=== PATIENT | male | born 1940 | race Caucasian/White ===

== ENCOUNTER 2017-03-15 12:14 | Inpatient (IN) ==
[~2017-03-15 12:14] MED LIST: DIAZEPAM 5 MG TABLET PO ONE; HEPARIN/NACL 0.9% 2 UNITS/ML 0 ML IV ONE; LIDOCAINE 1% 20 ML VIAL ONE; MIDAZOLAM 2 MG/2 ML VIAL ONE; diphenhydrAMINE CAP 25 MG CAPSULE PO ONE; fentaNYL 100 MCG/2 ML VIAL ONE
[2017-03-15] MEDS: SODIUM CHLORIDE 0.45% 1,000 ML IV SCH ×2 (12:55→21:38)
[2017-03-15] MEDS ORDERED: diphenhydrAMINE CAP 25 MG CAPSULE ONE (12:57)
[2017-03-15] MEDS ORDERED: DIAZEPAM 5 MG TABLET ONE (12:57)
[2017-03-15] MEDS ORDERED: LIDOCAINE 1% 20 ML VIAL ONE (12:57)
[2017-03-15] MEDS ORDERED: HEPARIN/NACL 0.9% 2 UNITS/ML 1,000 ML IV ONE (12:57)
--- NOTE | 2017-03-15 13:04 | History and Physical Update ---
Sedation H&P Update - History and Physical H&P was reviewed, the patient examined and there: are no changes in the patients condition since last H&P was completed. - Dictation Physical: refer to scanned H&P - Physical Exam Mental Status: alert and oriented Heart: regular rate and rhythm Lung: clear to auscultation Abdomen: within normal limits Vitals: other (hypertensive) - Sedation Plan for Sedation: moderate Patient Consent: Procedure disscussed with patient and patinet has consented., Risks and benefits were discussed with patient,including infection,, bleeding, injury to surrounding structures, seizure, temporary nerve, Patient understands and accepts potential risks/benefits and agrees to, proceed. ASA Class: III Airway Assessment: Class III: Soft palate, base of uvula visible
[2017-03-15] MEDS ORDERED: VERAPAMIL 5 MG/2 ML VIAL ONE (13:11)
[2017-03-15] MEDS ORDERED: MIDAZOLAM 2 MG/2 ML VIAL ONE ×2 (13:11→13:31)
[2017-03-15] MEDS ORDERED: fentaNYL 100 MCG/2 ML VIAL ONE (13:11)
[2017-03-15] MEDS ORDERED: NITROGLYCERIN DRIP 50 MG/250 ML BOTTLE IV ONE (13:11)
[2017-03-15] MEDS ORDERED: diphenhydrAMINE 50 MG/1 ML VIAL ONE (13:44)
[2017-03-15] MEDS ORDERED: hydrALAZINE 20 MG/1 ML VIAL ONE (13:50)
[2017-03-15] MEDS ORDERED: ACETAMINOPHEN 325 MG TABLET PO PRN (14:17)
[2017-03-15] MEDS ORDERED: GLUCAGON 1 MG VIAL IM PRN (14:17)
[2017-03-15] MEDS ORDERED: DEXTROSE 50% 25 GM/50 ML VIAL IV PRN (14:17)
--- NOTE | 2017-03-15 14:31 | Cardiac Catheterization ---
Date of Procedure:: 03/15/17 Pre-op Diagnosis: Unstable angina Post-op diagnosis: other (Severe 2 vessel CADz as described below) Procedure: Procedures: 1. Left heart catheterization resting hemodynamics 2. Selective left and right coronary angiography 3. Selective left subclavian angiography with visualization of the left internal mammary artery 4. Left ventriculography 5. Right femoral iliac angiography 6. Closure right femoral arteriotomy with minx closure device (highly calcified vessel) After consent was taken from the patient. Taken to the catheterization lab for left heart catheterization via the radial approach.Time out was taken and recorded. Lidocaine was infiltrated the skin and subcu tissue overlying the right radial access point. Access was obtained with greater ease however the Terumo Glidewire would not advance was felt that the artery had significant spasm. Multiple attempts and multiple cannulations of the vessel unsuccessful. At this time cardiac catheterization was converted to via the femoral artery. 1% lidocaine was infiltrated in the skin and subcutaneous tissue overlying the right femoral artery. Modified Seldinger technique and an 18-gauge Cook needle was used for access to the right femoral artery. An 0.35 J-wire was advanced through the needle into the central aorta under fluoroscopy. A small skin was made and multiple attempts to pass a 6 Fijian sheath were unsuccessful 6 Fijian dilator also would not advance over the wire. The vessel was highly calcified at the access point in no successful cannulation except for the wire was obtained. At this time the wire was removed along with the needle and manual compression was held until hemostasis was obtained. At this time a more superior approach was attempted and a 6 Fijian placed over the wire with great ease. The sheath was aspirated and flushed. A JL46 was advanced over the wires in the left main coronary artery was selectively engaged. Multiple orthogonal views of the left system were obtained. The catheter was then exchanged over the wire. The sheath was aspirated and flushed. A JR4 catheter was advanced over the wire into the central aorta. The right coronary could not be used to cannulate the highly calcified right coronary artery appear to have a posterior takeoff. At this time a Axel right posterior catheter was used and selectively engaged and orthogonal views of the right coronary artery were obtained. The catheter was then exchanged over the wire, the sheath was aspirated and flushed. At this time an angled pigtail catheter was advanced across the aortic valve into the ventricle. Pressure measurements were obtained and a cine ventriculogram was performed with hand-injection in the AYALA projection. Pullback measurements were performed. The cath was exchanged over the wire and the previously used Axel right posterior was used to selectively engage the left subclavian and a left subclavian angiography was performed with good visualization of the proximal portion of the left internal mammary artery. The whip operator reviewed the films. The sheath was aspirated and flushed and a right femoral and iliac angiography was performed. The access site was amenable for closure and the area was reprepped with ChloraPrep and draped with sterile towels. The Mynx closure device was used in standard technique. There was a small hematoma and distal pulses were good. Total diagnostic fluoroscopy time 8.4 minutes total contrast exposure 105 cc of Omnipaque and total fluoroscopy dose of 798 mGy FINDINGS: LV: 186/17 LVEDP: 31 Ao:183/72 EF: Approximately 55% was suboptimal opacification of the ventricle LM: Large, calcified angiographically normal LAD: Left anterior descending artery is moderately calcified proximally there is a long chronic total occlusion segment of the vessel with left to left, collaterals to the LAD this is at the takeoff of the first diagonal that also was highly diseased at this high-grade stenosis and [employer] of the RCA this is a bifurcation type [employer] with it will be at least a J [employer] 3 due to calcification absence of proximal cap and length LCx: This vessel is rather large but nondominant has moderate to mild disease no high-grade epicardial stenosis RCA: There is a highly calcified vessel with a posterior takeoff has an ostial 80% and a proximal 80% stenosis. The right of vessels calcified but free of any significant epicardial narrowing RFA/MARQUEZ: Is a highly calcified very large vessel with diffuse heavy calcification and stenosis that approaches 60% in the mid body of the femoral artery the iliac arteries calcified has no high-grade stenosis The left subclavian and SNEHAL are free of any significant disease Assessment: 1. Uncontrolled hypertension with elevated end-diastolic pressure possible distal anterior wall motion abnormality not well seen on the ventriculogram 2. Severe two-vessel coronary disease as described above with a very long calcific [employer] of the mid LAD with no well visualized proximal (J CTO3) 3. Calcific peripheral disease as described above 4. Diabetes mellitus type 2 5. Dyslipidemia PLAN: 1. Consultation with CT surgery to assess candidacy for coronary artery bypass grafting 2 or 3 based on the candidacy our target for the diagonal. I discussed with the patient's in great detail. Implants: Mynx closure device Anesthesia: moderate conscious sedation Surgeon / Physician: Guerline Gates Waste Machine Operator: none Estimated blood loss: none Specimens: none sent Condition: stable Disposition: floor - Medications / Follow-up
[2017-03-15] MEDS: INSULIN REGULAR 100 UNIT/ML SUBCUT SCH ×2 (16:39→21:39)
[2017-03-15] MEDS ORDERED: SIMVASTATIN 20 MG TABLET PO SCH (21:00)
[2017-03-15] MEDS ORDERED: PRAMIPEXOLE 0.25 MG TABLET PO SCH (21:00)
[2017-03-15] MEDS ORDERED: SERTRALINE 50 MG TABLET PO SCH (21:00)
[2017-03-15] MEDS: CARVEDILOL 25 MG TABLET PO SCH (21:39)
[2017-03-16 04:49] LABS: Basophils # 0.1 10*3/uL (0.0-0.2); Basophils % 0.8 % (0.0-0.8); Eosinophils # 0.4 10*3/uL (0.0-0.87); Eosinophils % 3.9 % (0.00-10.9); Hemoglobin 14.4 GM/DL (14.0-18.0); Immature Granulocytes % 0.8 %; Immature Granulocytes Absolute 0.07 #; Lymphocytes # 1.6 10*3/uL (1.4-4.0); Lymphocytes % 17.5 % (21.2-54.2); Mean Corpuscular HGB Conc 34.3 GM/DL (32-36); Mean Corpuscular Hemoglobin 29 PG (27-34); Mean Corpuscular Volume 83.5 FL (87-102); Mean Platelet Volume 10.4 FL (9.6-12.0); Monocytes # 0.8 10*3/uL (0.11-0.8); Monocytes % 9.2 % (1.7-12.7); Neutrophils # 6.1 10*3/uL (1.4-7.4); Neutrophils % 67.8 % (38.7-73.9); Platelet Count 187 T/CUMM (130-400); Red Blood Count 5.03 MC/CUMM (3.8-5.5); Red Cell Distribution Width 13.6 % (9.3-17.3)
[2017-03-16 05:17] LABS: Calcium 9.3 MG/DL (8.5-10.1); Osmolality,Calculated 279.5 MOS/KG (273-304); Potassium 4.2 MMOL/L (3.5-5.1)
--- NOTE | 2017-03-16 08:04 | EKG Report ---
Stationary ECG Study [facility] Test Date: 03/16/2017 8:06:51 AM Pat Name: АЛЕКСАНДР LOPEZ Department: Room: 288 Gender: M Commercial Manager: WALDO : 1940 Requested by: Bakari Lara Order Number: [id number] Reading MD: MARCUS GRANT Intervals [place] Rate: 54 P: 78 TX: 186 QRS: 60 QRSD: 95 T: 114 QT: 465 QTc: 452 Interpretive Statements SINUS BRADYCARDIA ANTERIOR MYOCARDIAL INFARCTION, OF INDETERMINATE AGE Electronically Signed On 03-16-17 17:06:54 CDT by MARCUS GRANT [email or web address]
[2017-03-16] MEDS: CARVEDILOL 25 MG TABLET PO SCH (08:48)
[2017-03-16] MEDS: INSULIN REGULAR 100 UNIT/ML SUBCUT SCH ×2 (08:48→12:00)
[2017-03-16] MEDS ORDERED: ASPIRIN EC 81 MG TABLET PO SCH (09:00)
[2017-03-16] MEDS ORDERED: amLODIPine 5 MG TABLET PO SCH (09:00)
[2017-03-16] MEDS ORDERED: ENALAPRIL 10 MG TABLET PO SCH (09:00)
[2017-03-16] MEDS ORDERED: COENZYME Q10 100 MG CAPSULE PO SCH (09:00)
[2017-03-16] MEDS ORDERED: CHOLECALCIFEROL 1,000 UNIT TABLET PO SCH (09:00)
--- NOTE | 2017-03-16 09:18 | Cardiothoracic Progress Note ---
Cardiothoracic Subjective Interval history: Patient is a 76-year-old man who underwent cardiac catheterization yesterday by Dr. Argueta because of symptoms of increasing chest discomfort. Catheterization revealed severe two-vessel coronary disease the patient has been advised to have bypass surgery. I reviewed the films and agree with this recommendation and tentatively plan for next week. Patient is going to go home today presumably and I have asked him to give us a call on Sunday to let us know day he prefers to have surgery. Exam (Progress Note) - Constitutional Vitals: Period Temp Pulse Resp BP Sys/Macias Pulse Ox Last 24 Hr 96.8 F-98.7 F 53-62 16-20 131-195/71-123 92-98 Result/EKG - Labs CBC & BMP: 03/16/17 03:45 03/16/17 03:45 Labs: Laboratory Results - last 24 hr 03/15/17 03/15/17 03/15/17 12:59 16:24 19:11 WBC RBC Hgb Hct MCV MCH MCHC RDW Plt Count MPV Neut % (Auto) Lymph % (Auto) [place] % (Auto) Eos % (Auto) Baso % (Auto) Neut # (Auto) Lymph # (Auto) [place] # (Auto) Eos # (Auto) Baso # (Auto) Immature Gran % Nucleated RBC % Immature Gran # Nucleated RBCs # Sodium Potassium Chloride Carbon Dioxide Anion Gap BUN Creatinine GFR Calculation BUN/Creatinine Ratio Glucose POC Glucose 160 H 116 H 201 H Calculated Osmolality Calcium 03/16/17 03/16/17 03/16/17 03:45 03:45 07:30 WBC 9.0 RBC 5.03 Hgb 14.4 Hct 42.0 MCV 83.5 L MCH 29 MCHC 34.3 RDW 13.6 Plt Count 187 MPV 10.4 Neut % (Auto) 67.8 Lymph % (Auto) 17.5 L [place] % (Auto) 9.2 Eos % (Auto) 3.9 Baso % (Auto) 0.8 Neut # (Auto) 6.1 Lymph # (Auto) 1.6 [place] # (Auto) 0.8 Eos # (Auto) 0.4 Baso # (Auto) 0.1 Immature Gran % 0.8 Nucleated RBC % 0.0 Immature Gran # 0.07 Nucleated RBCs # 0.00 Sodium 139 Potassium 4.2 Chloride 104 Carbon Dioxide 30 Anion Gap 9.2 BUN 14 Creatinine 0.80 GFR Calculation 121 BUN/Creatinine Ratio 17.00 Glucose 131 H POC Glucose 167 H Calculated Osmolality 279.5 Calcium 9.3 Quality Measures - VTE Contraindication to Pharmacological VTE Prophylaxis: High Risk of Bleeding
[2017-03-16 12:24] VITALS: BP 157/72
--- NOTE | 2017-03-16 13:33 | Discharge Summary ---
Hospital Course - Hospital Course Hospital Course: Mr. Slade is a 76-year-old male who was admitted as an outpatient for left heart catheterization due to unstable angina and dyspnea on exertion. Dr. Gates performed left heart cath via right groin on 03/15/2017 which revealed severe two-vessel coronary disease with a very long calcific TRUCK [employer]IVER [employer] of the mid LAD with no well visualized proximal (J CTO3). His ejection fraction was noted to be 55%. CT surgery was consulted to assess candidacy for CABG [address] Guido has seen him and tentatively plans for surgery next week. He is to give Dr. Guido's office a call on Sunday to let them know which day he prefers to have surgery. Radial approach was attempted but was unsuccessful due to spasm. He was observed overnight on the telemetry unit and has done well. His labwork is stable. His blood pressure has been elevated since admission and his enalapril was increased. His blood pressure continues to be elevated. We will further adjust his blood pressure medications prior to discharge. He has been instructed to monitor his blood pressure daily. His right radial cath site looks good. It is open to air without bleeding or hematoma. Radial pulse is 2+. Right groin dressing was removed and cath site is now open to air. There is no bleeding, hematoma, or bruit at site. Femoral pulse is 3+. Peripheral pulses are present and palpable bilaterally. At this time, Mr. Heller has met maximum benefit from hospitalization and will be discharged home in stable condition. - Time spent with patient Time with patient DS: Less than 30 minutes Diagnosis - Discharge Diagnosis (1) Dyspnea on exertion Status: Acute (2) CAD (coronary artery disease) Status: Chronic (3) Overweight Status: Chronic (4) Hypertension Status: Chronic (5) Hypercholesterolemia Status: Chronic (6) Diabetes Status: Chronic Specialty Discharge - Follow Up or Referrals Follow up with: Jonas Guido MD [Physician] - (Call Sunday to set up surgery date. ) Guerline Gates DO [Physician] - (Follow up with Dr. Gates in 2-3 weeks if not in hospital or when discharged following CABG, follow up in 2 weeks from date of discharge. ) Discharge Plan - Discharge Data Disposition: Disch To Home/Self Care Condition at Discharge: Stable Discharge Diet: diabetic diet, heart healthy Activity: no lifting (No lifting over 5 pounds 1 week.) Hygiene: may shower (Do not submerge cath site beneath water for 1 week.) Weight Bearing at Discharge: full weight bearing Driving: not for (No driving for 3 days.) Contact your physician if you experience:: fever over 101, Difficulty voiding, Redness or swelling, Nausea/Vomiting, Shortness of breath, Bleeding, pain uncontrolled by pain medications - Discharge Medications Continue Sertraline [Zoloft] 50 mg PO BEDTIME Simvastatin [Zocor] 20 mg PO BEDTIME Aspirin EC Tab 81 mg PO DAILY Ubidecarenone [Co Q-10] 400 mg PO DAILY metFORMIN [Glucophage] 500 mg PO TID #0 Cholecalciferol (Vitamin D3) [Vitamin D3] 1,000 unit PO DAILY Pramipexole [Mirapex] 0.25 mg PO BEDTIME Carvedilol 25 mg PO BID Changed Enalapril Maleate 10 mg PO BID #60 tablet amLODIPine [Norvasc] 10 mg PO DAILY #30 tablet - Follow Up or Referral - Forms/Instructions Additional Discharge Instructions: May resume taking Metformin on SUNDAY. Exam - Constitutional Vitals: Period Temp Pulse Resp BP Sys/Macias Pulse Ox Last 24 Hr 96.8 F-98.7 F 52-62 16-20 131-195/71-123 92-98 Exam: General: Present: Appears Well, No Apparent Distress. Pleasant and cooperative. Appears comfortable. HEENT: Present: PERRL, Normocephaly, atraumatic. Mucus Membranes Moist. No jaundice noted. Conjunctiva moist and clear, sclerae anicteric Neck: Present: Supple Neck, Midline Trachea, No Masses, No Bruit, No tenderness Cardiac: Present: Regular Rate and Rhythm, systolic Murmur Lungs: Present: Clear to auscultation bilaterally, no wheeze, rhonchi, rales. Neuro: Present: Awake, alert, and oriented x3. Moves all extremities well without hemiparesis or paralysis. Grossly Intact. Absent: Resting Tremor, Essential Tremor Abdomen: Present: Soft, Active Bowel Sounds, No Masses, Non-Tender, nondistended. No abdominal bruit or thrill noted. Skin: Present: Clear. Absent: Rash, No skin breakdown. Back: Normal inspection, no vertebral tenderness. Musculoskeletal: Present: No Fluid Collection, No Pain, Normal Range of Motion Extremities: Present: Normal Gait, No Clubbing, No Cyanosis, Upper Extr. Pulses 2+, Lower Extr. Pulses 2+, No edema. Capillary refill less than 3 seconds. Right groin: No bleeding, hematoma, or bruit. Femoral pulse 3+. Mild ecchymosis surrounding cath site. Peripheral pulses present and palpable bilaterally. Right wrist: No bleeding or hematoma at cath site. Right radial pulse 2+. Discharge Results Procedures and tests throughout hospitalization: Date of Procedure:: 03/15/17 LEFT HEART CATHETERIZATION FINDINGS: LV: 186/17 LVEDP: 31 Ao:183/72 EF: Approximately 55% was suboptimal opacification of the ventricle LM: Large, calcified angiographically normal LAD: Left anterior descending artery is moderately calcified proximally there is a long chronic total occlusion segment of the vessel with left to left, collaterals to the LAD this is at the takeoff of the first diagonal that also was highly diseased at this high-grade stenosis and [employer] of the RCA this is a bifurcation type TRUCK [employer]IVER [employer] with it will be at least a J TRUCK DRIVER [employer] 3 due to calcification absence of proximal cap and length LCx: This vessel is rather large but nondominant has moderate to mild disease no high-grade epicardial stenosis RCA: There is a highly calcified vessel with a posterior takeoff has an ostial 80% and a proximal 80% stenosis. The right of vessels calcified but free of any significant epicardial narrowing RFA/MARQUEZ: Is a highly calcified very large vessel with diffuse heavy calcification and stenosis that approaches 60% in the mid body of the femoral artery the iliac arteries calcified has no high-grade stenosis The left subclavian and SNEHAL are free of any significant disease Assessment: 1. Uncontrolled hypertension with elevated end-diastolic pressure possible distal anterior wall motion abnormality not well seen on the ventriculogram 2. Severe two-vessel coronary disease as described above with a very long calcific TRUCK [employer] of the mid LAD with no well visualized proximal (J CTO3) 3. Calcific peripheral disease as described above 4. Diabetes mellitus type 2 5. Dyslipidemia PLAN: 1. Consultation with CT surgery to assess candidacy for coronary artery bypass grafting 2 or 3 based on the candidacy our target for the diagonal. I discussed with the patient's in great detail. Labs on day of discharge: Labs from last 24 hours 03/16/17 03/16/17 03/16/17 12:13 07:30 03:45 WBC RBC Hgb Hct MCV MCH MCHC RDW Plt Count MPV Neut % (Auto) Lymph % (Auto) [place] % (Auto) Eos % (Auto) Baso % (Auto) Neut # (Auto) Lymph # (Auto) [place] # (Auto) Eos # (Auto) Baso # (Auto) Immature Gran % Nucleated RBC % Immature Gran # Nucleated RBCs # Sodium 139 Potassium 4.2 Chloride 104 Carbon Dioxide 30 Anion Gap 9.2 BUN 14 Creatinine 0.80 GFR Calculation 121 BUN/Creatinine Ratio 17.00 Glucose 131 H POC Glucose 142 H 167 H Calculated Osmolality 279.5 Calcium 9.3 03/16/17 03/15/17 03/15/17 03:45 19:11 16:24 WBC 9.0 RBC 5.03 Hgb 14.4 Hct 42.0 MCV 83.5 L MCH 29 MCHC 34.3 RDW 13.6 Plt Count 187 MPV 10.4 Neut % (Auto) 67.8 Lymph % (Auto) 17.5 L [place] % (Auto) 9.2 Eos % (Auto) 3.9 Baso % (Auto) 0.8 Neut # (Auto) 6.1 Lymph # (Auto) 1.6 [place] # (Auto) 0.8 Eos # (Auto) 0.4 Baso # (Auto) 0.1 Immature Gran % 0.8 Nucleated RBC % 0.0 Immature Gran # 0.07 Nucleated RBCs # 0.00 Sodium Potassium Chloride Carbon Dioxide Anion Gap BUN Creatinine GFR Calculation BUN/Creatinine Ratio Glucose POC Glucose 201 H 116 H Calculated Osmolality Calcium DS: Provider Date of admission: 03/15/17 14:16 Primary care physician: Ian Jackson Attending physician on admission: Guerline Gates DO Consults: 03/15/17 14:20 Consult to Physician [CONS] Routine Comment: Severe 2 vessel CADz in a diabetic male Consulting Provider: Jonas Guido Consult to Specialist Group: Cardiothoracic Surgery Person Notified: PHLILY Date Notified: 03/15/17 Time Notified: 14:55 Discharging clinician: DWAYNE Gracia Expected date of discharge: 03/16/17
--- NOTE | 2017-03-16 14:43 | ECHO Report ---
Tee Heller 03/16/2017 Exam Date: 07:34 Referring Physician: kal Reyna Technologist: MALLIKA REA Age: 76 Ht (in): 71 Wt (lb): 276 MExam Location: [facility] Gender: Echo [id number]: Essential (primary) hypertension, DyIndications:spnea on exertion, Hypercholesterolemia, Unstable angina, Hx: CT, Diabetes BP: 180 / 76 HR: SinusRhythm: GoodTechnical Quality: IMPRESSIONS Normal left ventricular cavity size. Mild left ventricular hypertrophy. Apical hypokinesis- Ef in the 45-50 % range. There is an apical mildly echo dense area that by my interpretation appears to be side lobe artifact. I think that it is much less likely thrombus though a contrast study may be indicated to fully dileneate. Mildly increased right ventricular size. The right atrium is mildly enlarged. The left atrium is mildly enlarged. Morphologically normal mitral valve. Mild mitral valve regurgitation. Morphologically normal aortic valve without significant sclerosis or stenosis. There is no aortic regurgitation. Morphologically normal tricuspid valve. Trace to mild tricuspid valve regurgitation. Morphologically normal pulmonic valve without significant stenosis. There is no pulmonic regurgitation. Normal pericardium without effusion. Normal ascending aorta dimension. MEASUREMENTS (Male / Female) Normal Values 2D ECHO LV Diastolic Diameter PLAX 5.4 cm 4.2 - 5.9 / 3.9 - 5.3 cm LV Systolic Diameter PLAX 2.9 cm LV Fractional Shortening PLAX 45.6 % IVS Diastolic Thickness 1.3 cm 0.6 - 1.0 / 0.6 - 0.9 cm LVPW Diastolic Thickness 1.1 cm 0.6 - 1.0 / 0.6 - 0.9 cm RV Internal Dim ED PLAX 4.0 cm Aortic Root Diameter 3.2 cm LA Systolic Diameter LX 4.7 cm 3.0 - 4.0 / 2.7 - 3.8 cm DOPPLER TR Peak Velocity 307.0 cm/s TR Peak Gradient 37.7 mmHg FINDINGS Left Ventricle Normal left ventricular cavity size. Mild left ventricular hypertrophy. Apical hypokinesis- Ef in the 45-50 % range. There is an apical mildly echo dense area that by my interpretation appears to be side lobe artifact. I think that it is much less likely thrombus though a contrast study may be indicated to fully dileneate. Right Ventricle Mildly increased right ventricular size. Right Atrium The right atrium is mildly enlarged. Left Atrium The left atrium is mildly enlarged. Mitral Valve Morphologically normal mitral valve. Mild mitral valve regurgitation. Aortic Valve Morphologically normal aortic valve without significant sclerosis or stenosis. There is no aortic regurgitation. Tricuspid Valve Morphologically normal tricuspid valve. Trace to mild tricuspid valve regurgitation. Pulmonic Valve Morphologically normal pulmonic valve without significant stenosis. There is no pulmonic regurgitation. Pericardium Normal pericardium without effusion. Aorta Normal ascending aorta dimension. Román Richardson MD (Electronically Signed) 16 March 2017 Final Date: 14:41
== END 2017-03-16 15:30 | disposition home or self-care (01) | DRG 287 ==
LOC: N.CL 12:14 → N.TELEN 14:16
PROVIDERS: ADMIT Internal Medicine Cardiovascular Disease; ATTEND Internal Medicine Cardiovascular Disease

== ENCOUNTER 2017-03-22 09:36 | Inpatient (IN) ==
--- NOTE | 2017-03-20 09:54 | Cardiothoracic History & Phys ---
History of Present Illness Chief complaint: Chest pain History of present illness: Mr. Heller is a 76 year old male who presented to his outside physician with symptoms of increasing substernal chest discomfort. Patient was referred to Dr. Shah for further evaluation which included cardiac catheterization and this demonstrated critical coronary disease. Patient was advised to have bypass surgery and is to be admitted on , 03/22/2017 for surgery on 03/23/2017. Past medical history his past medical history is significant for history of hyperlipidemia and previous myocardial infarction. He also has type 2 diabetes and hypertension. Past surgical history is significant for history of prostate surgery and tonsillectomy. Is also had a laminectomy and previous knee surgery and has had a lobectomy of the lung for uncertain pathology. Family history is noncontributory social history is significant and the patient was a former smoker but did quit about 24 years ago. He is an occasional drinker. Review of systems is noncontributory. Physical examination patient is a well-developed well-nourished white male in no acute distress. Examination of head eyes ears nose and throat show the pupils are equal react to light and extraocular motions are intact. Oropharynx is benign. Examination of the neck shows no masses and there is no thyromegaly. Examination of the chest is clear to percussion and auscultation. Examination of heart shows regular sinus rhythm and there are no murmurs. Examination the abdomen is soft nontender and there are no masses or organomegaly which are appreciated. Examination extremities shows no cyanosis or edema. Neurological examination is grossly intact. Assessment: Coronary artery disease. Plan: Coronary bypass surgery 03/23/2017. Home Medications Medication Instructions Recorded Confirmed Type Aspirin EC Tab 81 mg PO DAILY 03/12/17 03/15/17 History Cholecalciferol (Vitamin D3) 1,000 unit PO DAILY 03/12/17 03/15/17 History [Vitamin D3] Sertraline [Zoloft] 50 mg PO BEDTIME 03/12/17 03/15/17 History Simvastatin [Zocor] 20 mg PO BEDTIME 03/12/17 03/15/17 History Carvedilol 25 mg PO BID 03/15/17 03/15/17 History Pramipexole [Mirapex] 0.25 mg PO BEDTIME 03/15/17 03/15/17 History Ubidecarenone [Co Q-10] 400 mg PO DAILY 03/15/17 03/15/17 History Enalapril Maleate 10 mg PO BID #60 tablet 03/16/17 Rx amLODIPine [Norvasc] 10 mg PO DAILY #30 tablet 03/16/17 Rx metFORMIN [Glucophage] 500 mg PO TID #0 03/16/17 03/15/17 Rx Allergies Allergy/AdvReac Type Severity Reaction Status Date / Time Procaine [From Novocain] AdvReac Severe Fainting Verified 03/15/17 12:33 Medical,Surgical,& Family Hx - Medical History Cardio: History of: CAD No history of: Hypertension, [place] Neurology: No history of: Seizures Endocrine: History of: Diabetes Mellitus (NIDDM) - Surgical History Thoracic Surgeries: Surgical HX of;: Lobectomy (left upper lobe) Orthopedic Surgeries: Surgical HX of;: Total Knee Replacement - Social History Smoking Status: Former smoker Quality Measures - VTE Contraindication to Pharmacological VTE Prophylaxis: High Risk of Bleeding
[~2017-03-22 09:36] MED LIST changes: +DEXTROSE 50% 25 GM/50 ML VIAL IV PRN; -DIAZEPAM 5 MG TABLET PO ONE; +GLUCAGON 1 MG VIAL IM PRN; -HEPARIN/NACL 0.9% 2 UNITS/ML 0 ML IV ONE; -LIDOCAINE 1% 20 ML VIAL ONE; -MIDAZOLAM 2 MG/2 ML VIAL ONE; +SODIUM CHLORIDE 0.9% 1,000 ML IV SCH; -diphenhydrAMINE CAP 25 MG CAPSULE PO ONE; -fentaNYL 100 MCG/2 ML VIAL ONE
[2017-03-22 11:10] LABS: ABG Base Excess 0.5 MMOL/L (-2.5-2.5); ABG HCO3 24.8 MMOL/L (20-26); ABG Oxygen Saturation 96.7 % (95-100); ABG PH 7.421 (7.35-7.45); ABG PO2 84.7 MM HG (80-95); ABG TCO2 21.3 MMOL/L (23-27); Allen Test Positive
[2017-03-22 11:15] LABS: Basophils # 0.1 10*3/uL (0.0-0.2); Basophils % 0.8 % (0.0-0.8); Eosinophils # 0.4 10*3/uL (0.0-0.87); Eosinophils % 4.6 % (0.00-10.9); Hematocrit 40.2 VOL% (42.0-52.0); Hemoglobin 13.9 GM/DL (14.0-18.0); Immature Granulocytes Absolute 0.08 #; Lymphocytes # 1.2 10*3/uL (1.4-4.0); Lymphocytes % 14.8 % (21.2-54.2); Mean Corpuscular HGB Conc 34.6 GM/DL (32-36); Mean Corpuscular Hemoglobin 29 PG (27-34); Mean Corpuscular Volume 83.4 FL (87-102); Monocytes # 0.6 10*3/uL (0.11-0.8); Neutrophils # 5.7 10*3/uL (1.4-7.4); Neutrophils % 71.8 % (38.7-73.9); Platelet Count 212 T/CUMM (130-400); Red Blood Count 4.82 MC/CUMM (3.8-5.5); Red Cell Distribution Width 13.4 % (9.3-17.3)
[2017-03-22 11:55] LABS: Albumin 3.8 G/DL (3.4-5.0); Bilirubin,Total 1.1 MG/DL (0.2-1.0); Calcium 9.4 MG/DL (8.5-10.1); Osmolality,Calculated 286.5 MOS/KG (273-304); Potassium 4.1 MMOL/L (3.5-5.1); Total Protein 7.3 G/DL (6.4-8.3)
[2017-03-22] MEDS: amLODIPine 10 MG TABLET PO SCH ×3 (12:21→16:21)
[2017-03-22] MEDS: ASPIRIN EC 81 MG TABLET PO SCH ×3 (12:21→15:23)
[2017-03-22] MEDS: CLORAZEPATE 3.75 MG TABLET PO SCH ×2 (15:28→22:00)
[2017-03-22] MEDS: cloNIDine 0.1 MG TABLET PO SCH ×2 (15:28→22:00)
[2017-03-22] MEDS: CHLORHEXIDINE 4% SOLN 118 ML BOTTLE TOP SCH ×2 (15:30→22:06)
--- NOTE | 2017-03-22 16:39 | XRay Report ---
2 view chest. Indication: Coronary artery disease. Comparison: March 13, 2017. The heart is normal in size. The pulmonary vasculature is normal. There is elevation of the left hemidiaphragm with parenchymal and pleural scarring at the left costophrenic angle. Interstitial fibrotic changes seen at the lateral aspect of the right lung base. No pneumothorax. No pleural effusion. Degenerative changes of the spinal column and shoulders. Surgical clips are present in the left hilum. Impression: Stable pleural and parenchymal abnormality. PROCEDURE INTERPRETED AT [facility] DEPARTMENT OF RADIOLOGY Final Report Signed by: Dr. Yanci Corey
[2017-03-22] MEDS ORDERED: SIMVASTATIN 20 MG TABLET PO SCH (21:00)
[2017-03-22] MEDS ORDERED: PRAMIPEXOLE 0.25 MG TABLET PO SCH (21:00)
[2017-03-22] MEDS ORDERED: SERTRALINE 50 MG TABLET PO SCH (21:00)
[2017-03-22] MEDS: CARVEDILOL 25 MG TABLET PO SCH (22:00)
[2017-03-22] MEDS: ENALAPRIL 10 MG TABLET PO SCH (22:11)
[2017-03-22] MEDS: CHLORHEXIDINE 0.12% ORAL RINSE 60 ML BOTTLE SWISH/SPIT SCH (22:12)
[2017-03-23] MEDS: cloNIDine 0.1 MG TABLET PO SCH ×3 (02:50→19:21)
[2017-03-23] MEDS: CLORAZEPATE 3.75 MG TABLET PO SCH ×2 (04:27→19:22)
[2017-03-23] MEDS ORDERED: CEFUROXIME INJ 1,500 MG in SODIUM CHLORIDE 0.9% 100 ML IV ONE (04:30)
[2017-03-23] MEDS ORDERED: PAPAVERINE 60 MG/2 ML VIAL ONE (04:38)
[2017-03-23] MEDS ORDERED: VANCOMYCIN 1,000 MG VIAL ONE (04:38)
[2017-03-23] MEDS ORDERED: FAMOTIDINE 20 MG TABLET PO ONE (05:50)
[2017-03-23] MEDS ORDERED: DIAZEPAM 5 MG TABLET PO ONE (05:52)
[2017-03-23] MEDS: CARVEDILOL 25 MG TABLET PO SCH ×2 (06:02→19:21)
[2017-03-23] MEDS ORDERED: NITROPRUSSIDE 50 MG/2 ML VIAL ONE (07:28)
[2017-03-23] MEDS ORDERED: CALCIUM CHLORIDE 1,000 MG/10 ML SYRINGE IV ONE (07:28)
[2017-03-23] MEDS ORDERED: POTASSIUM CHLORIDE RIDER 100 ML IV ONE (07:28)
[2017-03-23] MEDS ORDERED: PHENYLEPHRINE DRIP 40 MG/250 ML PREMIX IV ONE (07:28)
[2017-03-23 07:35] LABS: ABG Base Excess -2.5 MMOL/L (-2.5-2.5); ABG HCO3 24.8 MMOL/L (20-26); ABG Oxygen Saturation 99.3 % (95-100); ABG PCO2 52.9 MM HG (35-48); ABG PH 7.288 (7.35-7.45); ABG PO2 411.7 MM HG (80-95); ABG TCO2 26.4 MMOL/L (23-27); Glucose Heart Surgery 165 MG/DL (74-106); Hemoglobin Heart Surgery 13.3 G/DL (14.0-18.0); Ionized Calcium Arterial 1.18 MMOL/L (1.21-1.46); PCO2 Patient Temp Arterial 52.9 MMHG; PH Patient Temp Arterial 7.288; PO2 Patient Temp Arterial 411.7 MM HG; Patient Temperature 37 CELCIUS; Potassium Heart/CVR 3.9 MMOL/L (3.5-5.1); Sodium Heart/CVR 137 MMOL/L (135-145)
[2017-03-23] MEDS ORDERED: ALBUMIN 5% 12.5 GM/250 ML VIAL IV ONE (07:35)
[2017-03-23] MEDS ORDERED: SODIUM BICARBONATE 50 MEQ/50 ML SYRINGE IV ONE ×2 (07:35→10:09)
[2017-03-23 07:50] LABS: Apearance,Urine CLEAR (Clear); Bacteria,Urine Occasional /HPF (Few); Bilirubin,Urine Negative (Negative); Blood, Urine Negative (Negative); Glucose,Urine (UA) Negative (Negative); Ketones,Urine Negative (Negative); Mucus,Urine Occasional /LPF (Occasional); Nitrite,Urine Negative (Negative); Protein,Urine 100 MG/DL; RBC,Urine 1 /HPF (0-4); Squamous Epithelial Cell,Urine Occasional /HPF (0-10); Urine Color Yellow (Yellow); Urine Specific Gravity 1.018 (1.001-1.035); Urine Urobilinogen < 2.0 EU/DL (0.2-1.0); WBC,Urine 2 /HPF (0-6)
[2017-03-23 08:41] LABS: Hematocrit Heart Surgery 26.9 PERCENT (42-52); Hemoglobin Heart Surgery 8.7 G/DL (14.0-18.0); PCO2 Patient Temp Venous 36.8 MM HG; PH Patient Temp Venous 7.43; PO2 Patient Temp Venous 35.5 MM HG; Potassium Heart/CVR 5.2 MMOL/L (3.5-5.1); VBG Base Excess 0.4 MEQ/L (0-4); VBG HCO3 24.4 MEQ/L (24-28); VBG Oxygen Saturation 75.5 %; VBG PCO2 40.5 MMHG (41-51); VBG PH 7.401; VBG PO2 40.8 MMHG (17-40)
[2017-03-23] MEDS ORDERED: INSULIN REGULAR 100 UNIT/ML ONE (08:51)
[2017-03-23] MEDS ORDERED: CHOLECALCIFEROL 1,000 UNIT TABLET PO SCH (09:00)
[2017-03-23] MEDS ORDERED: COENZYME Q10 100 MG CAPSULE PO SCH (09:00)
[2017-03-23] MEDS ORDERED: INSULIN REGULAR DRIP 100 ML IV ONE (09:30)
[2017-03-23 09:34] LABS: ABG Base Excess -1.4 MMOL/L (-2.5-2.5); ABG HCO3 22.3 MMOL/L (20-26); ABG Oxygen Saturation 98.8 % (95-100); ABG PCO2 33.9 MM HG (35-48); ABG PH 7.436 (7.35-7.45); ABG TCO2 23.3 MMOL/L (23-27); Glucose Heart Surgery 213 MG/DL (74-106); Hemoglobin Heart Surgery 11.2 G/DL (14.0-18.0); Ionized Calcium Arterial 1.21 MMOL/L (1.21-1.46); PCO2 Patient Temp Arterial 33.9 MMHG; PH Patient Temp Arterial 7.436; Patient Temperature 37 CELCIUS; Potassium Heart/CVR 4.7 MMOL/L (3.5-5.1); Sodium Heart/CVR 131 MMOL/L (135-145)
[2017-03-23] MEDS ORDERED: DEXTROSE 5% KCL 20 MEQ 20 MEQ/1,000 ML BAG IV ONE (10:09)
[2017-03-23] MEDS ORDERED: PROTAMINE SULFATE 250 MG/25 ML VIAL IV ONE (10:09)
[2017-03-23] MEDS ORDERED: ALBUMIN 25% 25 GM/100 ML VIAL IV ONE (10:09)
[2017-03-23] MEDS ORDERED: FUROSEMIDE 20 MG/2 ML VIAL ONE (10:10)
[2017-03-23] MEDS ORDERED: methylPREDNISolone SOD SUC 1,000 MG/8 ML VIAL ONE (10:10)
[2017-03-23] MEDS ORDERED: HEPARIN 10,000 UNIT/10 ML VIAL ONE (10:10)
[2017-03-23] MEDS ORDERED: PROTAMINE SULFATE 50 MG/5 ML VIAL IV ONE (10:10)
[2017-03-23] MEDS ORDERED: MAGNESIUM SULFATE 1 GM/2 ML VIAL ONE (10:10)
[2017-03-23] MEDS ORDERED: MANNITOL 12.5 GM/50 ML VIAL IV ONE (10:10)
[2017-03-23] MEDS ORDERED: SEVOFLURANE 1 UNIT/15 MINUTE INH ONE (10:12)
[2017-03-23] MEDS ORDERED: SUFentanil 250 MCG/5 ML AMP ONE ×2 (10:12)
[2017-03-23] MEDS ORDERED: HEPARIN/NACL 0.9% 2 UNITS/ML 500 ML IV ONE (10:12)
[2017-03-23] MEDS ORDERED: SODIUM CHLORIDE 0.9% 1,000 ML IV ONE (10:13)
[2017-03-23] MEDS ORDERED: SODIUM CHLORIDE 0.9% 100 ML IV ONE (10:13)
[2017-03-23] MEDS ORDERED: SODIUM CHLORIDE 0.9% 250 ML IV ONE (10:13)
[2017-03-23] MEDS ORDERED: LACTATED RINGERS 1,000 ML IV ONE (10:13)
[2017-03-23] MEDS ORDERED: MIDAZOLAM 10 MG/2 ML VIAL ONE ×2 (10:13)
[2017-03-23] MEDS ORDERED: ePHEDrine 50 MG/ML AMP ONE (10:16)
[2017-03-23] MEDS ORDERED: VECURONIUM 10 MG VIAL IV PRN ×2 (10:52)
[2017-03-23] MEDS ORDERED: CALCIUM CHLORIDE 1,000 MG/10 ML SYRINGE IV PRN (10:52)
[2017-03-23] MEDS ORDERED: DEXTROSE 50% 25 GM/50 ML VIAL IV PRN ×2 (10:52)
[2017-03-23] MEDS ORDERED: ACETAMINOPHEN 650 MG SUPP RECTAL PRN (10:52)
[2017-03-23] MEDS ORDERED: MORPHINE 2 MG/1 ML SYRINGE IV PRN (10:52)
[2017-03-23] MEDS ORDERED: PHENYLEPHRINE DRIP 40 MG/250 ML PREMIX IV PRN (10:52)
[2017-03-23] MEDS ORDERED: INSULIN REGULAR 100 UNIT/ML IV ONE (10:52)
[2017-03-23] MEDS ORDERED: MIDAZOLAM 10 MG/2 ML VIAL IV PRN (10:52)
[2017-03-23] MEDS ORDERED: LACTATED RINGERS 250 ML IV PRN (10:52)
[2017-03-23] MEDS ORDERED: MORPHINE 10 MG/1 ML VIAL IV PRN (10:52)
[2017-03-23] MEDS ORDERED: MAGNESIUM SULF RIDER 4 GM in PREMIX 1 EACH IV PRN (10:52)
[2017-03-23] MEDS ORDERED: ONDANSETRON 4 MG/2 ML VIAL IV PRN (10:52)
[2017-03-23] MEDS ORDERED: NITROPRUSSIDE 100 MG in DEXTROSE 5% 250 ML IV PRN (10:52)
[2017-03-23] MEDS ORDERED: MIDAZOLAM 2 MG/2 ML VIAL IV PRN (10:52)
[2017-03-23] MEDS ORDERED: MAGNESIUM SULF RIDER 2 GM in PREMIX 1 EACH IV PRN (10:52)
[2017-03-23] MEDS ORDERED: POTASSIUM CHLORIDE RIDER 10 MEQ in PREMIX 1 EACH IV PRN (10:52)
[2017-03-23 10:55] LABS: ABG Base Excess -0.4 MMOL/L (-2.5-2.5); ABG HCO3 24.1 MMOL/L (20-26); ABG Oxygen Saturation 98.1 % (95-100); ABG PCO2 41.5 MM HG (35-48); ABG PH 7.383 (7.35-7.45); Glucose Heart Surgery 188 MG/DL (74-106); Hematocrit Heart Surgery 35.5 PERCENT (42-52); Hemoglobin Heart Surgery 11.5 G/DL (14.0-18.0)
[2017-03-23 10:56] LABS: Basophils % 0.4 % (0.0-0.8); Eosinophils # 0.1 10*3/uL (0.0-0.87); Eosinophils % 1.5 % (0.00-10.9); Hematocrit 33.6 VOL% (42.0-52.0); Immature Granulocytes % 1.3 %; Immature Granulocytes Absolute 0.09 #; Lymphocytes # 0.5 10*3/uL (1.4-4.0); Lymphocytes % 8.1 % (21.2-54.2); Mean Corpuscular HGB Conc 34.5 GM/DL (32-36); Mean Corpuscular Hemoglobin 29 PG (27-34); Mean Corpuscular Volume 83.6 FL (87-102); Monocytes # 0.3 10*3/uL (0.11-0.8); Monocytes % 4.6 % (1.7-12.7); Neutrophils # 5.6 10*3/uL (1.4-7.4); Neutrophils % 84.1 % (38.7-73.9); Red Blood Count 4.02 MC/CUMM (3.8-5.5); Red Cell Distribution Width 13.4 % (9.3-17.3); White Blood Count 6.7 T/CUMM (4-12)
[2017-03-23 11:03] LABS: INR 1.2; PT Patient Result 12.7 SECS; Partial Thromboplastin Time 30.1 SECS (0-40)
[2017-03-23 11:04] LABS: Hemoglobin 11.6 GM/DL (14.0-18.0); Platelet Count 152 T/CUMM (130-400)
[2017-03-23 11:20] LABS: Albumin 3.2 G/DL (3.4-5.0); Bilirubin,Total 1.2 MG/DL (0.2-1.0); Calcium 8.7 MG/DL (8.5-10.1); Osmolality,Calculated 280.7 MOS/KG (273-304); Potassium 4.2 MMOL/L (3.5-5.1); Total Protein 5.8 G/DL (6.4-8.3)
[2017-03-23] MEDS: SODIUM CHLORIDE 0.45% 1,000 ML IV SCH ×2 (11:25→11:26)
[2017-03-23] MEDS: INSULIN REGULAR DRIP 100 ML IV SCH (11:27)
[2017-03-23] MEDS: POTASSIUM CHLORIDE RIDER 20 MEQ in PREMIX 1 EACH IV PRN ×3 (11:29→16:51)
[2017-03-23 11:31] LABS: CKMB % 4.6 %
[2017-03-23 11:35] LABS: Troponin I Only 0.675 NG/ML (0.00-0.045)
[2017-03-23] MEDS ORDERED: MINERAL OIL/PETROLATUM OPH OINT 3.5 GM TUBE ONE (11:36)
[2017-03-23] MEDS ORDERED: VECURONIUM 10 MG VIAL IV ONE (11:36)
[2017-03-23] MEDS: CHLORHEXIDINE 4% SOLN 118 ML BOTTLE TOP SCH (11:37)
[2017-03-23] MEDS: KETOROLAC 30 MG/1 ML VIAL IV SCH ×3 (11:41→23:23)
[2017-03-23] MEDS: LACTATED RINGERS 1,000 ML IV PRN ×3 (12:43→21:52)
[2017-03-23 13:52] LABS: ABG Base Excess -0.1 MMOL/L (-2.5-2.5); ABG HCO3 24.4 MMOL/L (20-26); ABG Oxygen Saturation 97.3 % (95-100); ABG PCO2 40.9 MM HG (35-48); ABG PH 7.392 (7.35-7.45); ABG PO2 93.3 MM HG (80-95); ABG TCO2 21.9 MMOL/L (23-27); Glucose Heart Surgery 146 MG/DL (74-106); Hematocrit Heart Surgery 38.2 PERCENT (42-52); Hemoglobin Heart Surgery 12.4 G/DL (14.0-18.0); Potassium Heart/CVR 3.7 MMOL/L (3.5-5.1)
--- NOTE | 2017-03-23 14:15 | XRay Report ---
XR chest 1V portable Indication: Catheter placement Comparison: 22 March 2017 Findings: The heart and mediastinum are stable in size and configuration post cardiac surgery changes. The lines and tubes appear in good position. The pulmonary vascularity is slightly increased compared to previous. No lung infiltrates, effusions, pneumothorax or other abnormality is demonstrated. Impression: Interval cardiac surgery. Slight increased pulmonary vascularity may indicate mild cardiac decompensation. PROCEDURE INTERPRETED AT [facility] DEPARTMENT OF RADIOLOGY Final Report Signed by: Dr. Maxwell Uribe
--- NOTE | 2017-03-23 14:32 | Anesthesia Post-Op ---
Anesthesia Post OP - Post Ansesthetic Evaluation Patient seen in post op: Yes Resp: within normal limits (remains sedate) CV: within normal limits Mental: within normal limits (remains sedate) Temp: within normal limits [id number]: within normal limits Nausea and Vomiting: within normal limits Pain: within normal limits
[2017-03-23] MEDS: INSULIN REGULAR 100 UNIT/ML IV PRN (16:08)
[2017-03-23 16:45] LABS: ABG Base Excess -0.8 MMOL/L (-2.5-2.5); ABG HCO3 23.7 MMOL/L (20-26); ABG Oxygen Saturation 97.3 % (95-100); ABG PCO2 42.2 MM HG (35-48); ABG PH 7.372 (7.35-7.45); ABG TCO2 21.7 MMOL/L (23-27); Glucose Heart Surgery 162 MG/DL (74-106); Hematocrit Heart Surgery 37.9 PERCENT (42-52); Hemoglobin Heart Surgery 12.3 G/DL (14.0-18.0); Potassium Heart/CVR 4.2 MMOL/L (3.5-5.1)
[2017-03-23] MEDS: CEFUROXIME INJ 1,500 MG in SODIUM CHLORIDE 0.9% 100 ML IV SCH (18:12)
[2017-03-23 18:52] LABS: ABG Base Excess -1.3 MMOL/L (-2.5-2.5); ABG HCO3 23.3 MMOL/L (20-26); ABG Oxygen Saturation 97.8 % (95-100); ABG PCO2 40.3 MM HG (35-48); ABG PH 7.378 (7.35-7.45); ABG PO2 98.9 MM HG (80-95); Glucose Heart Surgery 131 MG/DL (74-106); Hemoglobin Heart Surgery 12.3 G/DL (14.0-18.0); Potassium Heart/CVR 4.4 MMOL/L (3.5-5.1)
[2017-03-23] MEDS: ASPIRIN EC 81 MG TABLET PO SCH (19:21)
[2017-03-23] MEDS: ENALAPRIL 10 MG TABLET PO SCH (19:22)
[2017-03-23] MEDS: CHLORHEXIDINE 0.12% ORAL RINSE 60 ML BOTTLE SWISH/SPIT SCH ×2 (19:22→21:12)
[2017-03-23] MEDS: amLODIPine 10 MG TABLET PO SCH (19:22)
[2017-03-23] MEDS: ALBUMIN 5% 12.5 GM in PREMIX 1 EACH IV PRN ×2 (19:43→20:29)
[2017-03-23 21:36] LABS: CKMB % 3.8 %
[2017-03-23 21:40] LABS: Troponin I Only 1.66 NG/ML (0.00-0.045)
[2017-03-23] MEDS ORDERED: FUROSEMIDE 40 MG/4 ML VIAL ONE (22:31)
[2017-03-23] MEDS ORDERED: FUROSEMIDE 40 MG/4 ML VIAL IV PRN (22:35)
[2017-03-24] MEDS: INSULIN REGULAR 100 UNIT/ML IV PRN (00:22)
[2017-03-24 01:52] LABS: ABG Base Excess -1.3 MMOL/L (-2.5-2.5); ABG HCO3 22.4 MMOL/L (20-26); ABG Oxygen Saturation 98.5 % (95-100); ABG PCO2 34.3 MM HG (35-48); ABG PH 7.433 (7.35-7.45); ABG PO2 151.4 MM HG (80-95); ABG TCO2 23.5 MMOL/L (23-27); Glucose Heart Surgery 132 MG/DL (74-106); Hemoglobin Heart Surgery 12.1 G/DL (14.0-18.0); Potassium Heart/CVR 3.7 MMOL/L (3.5-5.1)
[2017-03-24] MEDS: POTASSIUM CHLORIDE RIDER 20 MEQ in PREMIX 1 EACH IV PRN ×3 (02:23→07:04)
[2017-03-24 03:29] LABS: ABG HCO3 23.6 MMOL/L (20-26); ABG Oxygen Saturation 98.2 % (95-100); ABG PCO2 42.5 MM HG (35-48); ABG PH 7.367 (7.35-7.45); ABG TCO2 21.8 MMOL/L (23-27); Glucose Heart Surgery 146 MG/DL (74-106); Hematocrit Heart Surgery 36.1 PERCENT (42-52); Hemoglobin Heart Surgery 11.7 G/DL (14.0-18.0)
[2017-03-24 03:32] LABS: Basophils % 0.1 % (0.0-0.8); Hematocrit 33.6 VOL% (42.0-52.0); Hemoglobin 11.7 GM/DL (14.0-18.0); Immature Granulocytes % 0.5 %; Immature Granulocytes Absolute 0.06 #; Lymphocytes # 0.3 10*3/uL (1.4-4.0); Lymphocytes % 2.8 % (21.2-54.2); Mean Corpuscular HGB Conc 34.8 GM/DL (32-36); Mean Corpuscular Hemoglobin 29 PG (27-34); Mean Corpuscular Volume 84.2 FL (87-102); Mean Platelet Volume 10.5 FL (9.6-12.0); Monocytes # 0.2 10*3/uL (0.11-0.8); Monocytes % 2.1 % (1.7-12.7); Neutrophils # 10.9 10*3/uL (1.4-7.4); Neutrophils % 94.5 % (38.7-73.9); Platelet Count 145 T/CUMM (130-400); Red Blood Count 3.99 MC/CUMM (3.8-5.5); Red Cell Distribution Width 13.4 % (9.3-17.3); White Blood Count 11.5 T/CUMM (4-12)
[2017-03-24 04:11] LABS: Band Neutrophils 5 % (0-10); Lymphocytes 4 % (20-55); Platelet Estimate Normal; Segmented Neutrophils 91 % (50-85); Total Cells Counted 100
[2017-03-24 04:11] LABS: Albumin 3.4 G/DL (3.4-5.0); Bilirubin,Direct 0.2 MG/DL (0.0-0.20); Bilirubin,Total 0.5 MG/DL (0.2-1.0); CKMB % 3.2 %; Calcium 8.4 MG/DL (8.5-10.1); Magnesium 1.8 MG/DL (1.8-2.4); Osmolality,Calculated 283.4 MOS/KG (273-304); Potassium 4.1 MMOL/L (3.5-5.1); Total Protein 6.1 G/DL (6.4-8.3)
[2017-03-24 04:13] LABS: Troponin I Only 1.38 NG/ML (0.00-0.045)
[2017-03-24] MEDS: KETOROLAC 30 MG/1 ML VIAL IV SCH ×4 (05:45→17:37)
[2017-03-24 05:46] LABS: ABG Base Excess -0.4 MMOL/L (-2.5-2.5); ABG HCO3 24.1 MMOL/L (20-26); ABG Oxygen Saturation 98.4 % (95-100); ABG PCO2 37.5 MM HG (35-48); ABG PH 7.413 (7.35-7.45); ABG TCO2 21.2 MMOL/L (23-27); Glucose Heart Surgery 133 MG/DL (74-106); Potassium Heart/CVR 4.1 MMOL/L (3.5-5.1)
[2017-03-24] MEDS: CEFUROXIME INJ 1,500 MG in SODIUM CHLORIDE 0.9% 100 ML IV SCH (05:47)
[2017-03-24 06:36] LABS: ABG Base Excess -0.5 MMOL/L (-2.5-2.5); ABG PCO2 40.6 MM HG (35-48); ABG PH 7.387 (7.35-7.45); ABG TCO2 21.7 MMOL/L (23-27); Glucose Heart Surgery 133 MG/DL (74-106); Hematocrit Heart Surgery 36.5 PERCENT (42-52); Hemoglobin Heart Surgery 11.8 G/DL (14.0-18.0)
--- NOTE | 2017-03-24 07:31 | EKG Report ---
Stationary ECG Study [facility] Test Date: 03/24/2017 7:33:48 AM Pat Name: АЛЕКСАНДР LOPEZ Department: Room: 104 Gender: M Family Law Legal Assistant: : [id number] Requested by: Jonas Garcia Order Number: [id number] Reading MD: ASTRID MCCLELLAN Intervals [place] Rate: 69 P: 58 MO: 136 QRS: 31 QRSD: 106 T: 79 QT: 413 QTc: 432 Interpretive Statements SINUS RHYTHM POSSIBLE ANTERIOR MYOCARDIAL INFARCTION, OF INDETERMINATE AGE Electronically Signed On 03-26-17 17:58:27 CDT by ASTRID MCCLELLAN [email or web address]
--- NOTE | 2017-03-24 08:23 | Cardiothoracic Progress Note ---
Cardiothoracic Subjective Interval history: Patient is awake alert and extubated. He had a stable night and his vital signs are stable this morning and normal sinus rhythm and his cardiac output is 6 L/min. He has been breathing comfortably since extubation and his blood gases are excellent. Creatinine is within normal limits as is urine output. Chest tube drainage is minimal and his chest tubes are discontinued. We are going to restart his home medications and hopefully he will be ready to go to telemetry later this morning. Exam (Progress Note) - Constitutional Vitals: Period Temp Pulse Resp BP Sys/[place] Pulse Ox Last 24 Hr 96.7 F-99.2 F 63-80 8-14 109-186/49-77 95-100 Result/EKG - Labs CBC & BMP: 03/24/17 03:30 03/24/17 03:29 Labs: Laboratory Results - last 24 hr 03/22/17 03/23/17 03/23/17 10:54 08:39 09:13 WBC RBC Hgb Hct MCV MCH MCHC RDW Plt Count MPV Neut % (Auto) Lymph % (Auto) [place] % (Auto) Eos % (Auto) Baso % (Auto) Neut # (Auto) Lymph # (Auto) [place] # (Auto) Eos # (Auto) Baso # (Auto) Total Counted Immature Gran % Nucleated RBC % Immature Gran # Segmented Neutrophils Band Neutrophils Lymphocytes Nucleated RBCs # Platelet Estimate Pappenheimer Bodies INR PT Patient/Control Mix Circ Anticoag PTT Patient Temperature 35 37 ABG pH 7.436 ABG pH at Pt Temp 7.430 7.436 ABG pCO2 33.9 L ABG pCO2 at Pt Temp 36.8 33.9 ABG pO2 279.0 H ABG pO2 at Pt Temp 35.5 279.0 ABG HCO3 22.3 ABG Total CO2 23.3 ABG O2 Saturation 98.8 ABG Base Excess -1.4 ABG Sodium 130 L 131 L VBG pH 7.401 VBG pCO2 40.5 L VBG pO2 40.8 H VBG HCO3 24.4 VBG Total CO2 23.4 VBG O2 Saturation 75.5 VBG Base Excess 0.4 Hemoglobin 8.7 L 11.2 L D Hematocrit 26.9 L 33.0 L Potassium 5.2 H 4.7 Glucose 326 H 213 H Ionized Calcium 1.21 FiO2 80.00 Sodium Chloride Carbon Dioxide Anion Gap BUN Creatinine GFR Calculation BUN/Creatinine Ratio POC Glucose Calculated Osmolality Calcium Venous Ioniz Calcium 0.97 L Magnesium Total Bilirubin Direct Bilirubin AST ALT Alkaline Phosphatase Total Creatine Kinase CK-MB (CK-2) CK and CKMB Interp Troponin I Total Protein Albumin Globulin Albumin/Globulin Ratio Blood Type A POSITIVE Antibody Screen Negative Crossmatch See Detail 03/23/17 03/23/17 03/23/17 09:35 10:35 10:35 WBC 6.7 RBC 4.02 Hgb 11.6 L D Hct 33.6 L MCV 83.6 L MCH 29 MCHC 34.5 RDW 13.4 Plt Count 106 L D 152 D MPV 10.0 Neut % (Auto) 84.1 H Lymph % (Auto) 8.1 L [place] % (Auto) 4.6 Eos % (Auto) 1.5 Baso % (Auto) 0.4 Neut # (Auto) 5.6 Lymph # (Auto) 0.5 L [place] # (Auto) 0.3 Eos # (Auto) 0.1 Baso # (Auto) 0.0 Total Counted Immature Gran % 1.3 Nucleated RBC % 0.0 Immature Gran # 0.09 Segmented Neutrophils Band Neutrophils Lymphocytes Nucleated RBCs # 0.00 Platelet Estimate Pappenheimer Bodies INR 1.2 PT Patient/Control Mix 12.7 Circ Anticoag PTT 30.1 Patient Temperature ABG pH ABG pH at Pt Temp ABG pCO2 ABG pCO2 at Pt Temp ABG pO2 ABG pO2 at Pt Temp ABG HCO3 ABG Total CO2 ABG O2 Saturation ABG Base Excess ABG Sodium VBG pH VBG pCO2 VBG pO2 VBG HCO3 VBG Total CO2 VBG O2 Saturation VBG Base Excess Hemoglobin Hematocrit Potassium Glucose Ionized Calcium FiO2 Sodium Chloride Carbon Dioxide Anion Gap BUN Creatinine GFR Calculation BUN/Creatinine Ratio POC Glucose Calculated Osmolality Calcium Venous Ioniz Calcium Magnesium Total Bilirubin Direct Bilirubin AST ALT Alkaline Phosphatase Total Creatine Kinase CK-MB (CK-2) CK and CKMB Interp Troponin I Total Protein Albumin Globulin Albumin/Globulin Ratio Blood Type Antibody Screen Crossmatch 03/23/17 03/23/17 03/23/17 10:45 10:45 10:45 WBC RBC Hgb Hct MCV MCH MCHC RDW Plt Count MPV Neut % (Auto) Lymph % (Auto) [place] % (Auto) Eos % (Auto) Baso % (Auto) Neut # (Auto) Lymph # (Auto) [place] # (Auto) Eos # (Auto) Baso # (Auto) Total Counted Immature Gran % Nucleated RBC % Immature Gran # Segmented Neutrophils Band Neutrophils Lymphocytes Nucleated RBCs # Platelet Estimate Pappenheimer Bodies INR PT Patient/Control Mix Circ Anticoag PTT Patient Temperature ABG pH 7.383 ABG pH at Pt Temp ABG pCO2 41.5 ABG pCO2 at Pt Temp ABG pO2 102.0 H ABG pO2 at Pt Temp ABG HCO3 24.1 ABG Total CO2 22.0 L ABG O2 Saturation 98.1 ABG Base Excess -0.4 ABG Sodium VBG pH VBG pCO2 VBG pO2 VBG HCO3 VBG Total CO2 VBG O2 Saturation VBG Base Excess Hemoglobin 11.5 L D Hematocrit 35.5 L Potassium 4.2 4.0 Glucose 171 H 188 H Ionized Calcium FiO2 Sodium 138 Chloride 105 Carbon Dioxide 25 Anion Gap 12.2 BUN 19 H Creatinine 1.00 GFR Calculation 102 BUN/Creatinine Ratio 19.00 POC Glucose Calculated Osmolality 280.7 Calcium 8.7 Venous Ioniz Calcium Magnesium 2.0 Total Bilirubin 1.20 H Direct Bilirubin AST 49 H ALT 40 Alkaline Phosphatase 38 L Total Creatine Kinase 135 CK-MB (CK-2) 6.2 H CK and CKMB Interp 4.6 Troponin I 0.675 H Total Protein 5.8 L Albumin 3.2 L Globulin 2.6 Albumin/Globulin Ratio 1.2 Blood Type Antibody Screen Crossmatch 03/23/17 03/23/17 03/23/17 12:11 13:08 13:45 WBC RBC Hgb Hct MCV MCH MCHC RDW Plt Count MPV Neut % (Auto) Lymph % (Auto) [place] % (Auto) Eos % (Auto) Baso % (Auto) Neut # (Auto) Lymph # (Auto) [place] # (Auto) Eos # (Auto) Baso # (Auto) Total Counted Immature Gran % Nucleated RBC % Immature Gran # Segmented Neutrophils Band Neutrophils Lymphocytes Nucleated RBCs # Platelet Estimate Pappenheimer Bodies INR PT Patient/Control Mix Circ Anticoag PTT Patient Temperature ABG pH 7.392 ABG pH at Pt Temp ABG pCO2 40.9 ABG pCO2 at Pt Temp ABG pO2 93.3 ABG pO2 at Pt Temp ABG HCO3 24.4 ABG Total CO2 21.9 L ABG O2 Saturation 97.3 ABG Base Excess -0.1 ABG Sodium VBG pH VBG pCO2 VBG pO2 VBG HCO3 VBG Total CO2 VBG O2 Saturation VBG Base Excess Hemoglobin 12.4 L Hematocrit 38.2 L Potassium 3.7 Glucose 146 H Ionized Calcium FiO2 Sodium Chloride Carbon Dioxide Anion Gap BUN Creatinine GFR Calculation BUN/Creatinine Ratio POC Glucose 137 H 142 H Calculated Osmolality Calcium Venous Ioniz Calcium Magnesium Total Bilirubin Direct Bilirubin AST ALT Alkaline Phosphatase Total Creatine Kinase CK-MB (CK-2) CK and CKMB Interp Troponin I Total Protein Albumin Globulin Albumin/Globulin Ratio Blood Type Antibody Screen Crossmatch 03/23/17 03/23/17 03/23/17 15:06 16:07 16:40 WBC RBC Hgb Hct MCV MCH MCHC RDW Plt Count MPV Neut % (Auto) Lymph % (Auto) [place] % (Auto) Eos % (Auto) Baso % (Auto) Neut # (Auto) Lymph # (Auto) [place] # (Auto) Eos # (Auto) Baso # (Auto) Total Counted Immature Gran % Nucleated RBC % Immature Gran # Segmented Neutrophils Band Neutrophils Lymphocytes Nucleated RBCs # Platelet Estimate Pappenheimer Bodies INR PT Patient/Control Mix Circ Anticoag PTT Patient Temperature ABG pH 7.372 ABG pH at Pt Temp ABG pCO2 42.2 ABG pCO2 at Pt Temp ABG pO2 95.0 ABG pO2 at Pt Temp ABG HCO3 23.7 ABG Total CO2 21.7 L ABG O2 Saturation 97.3 ABG Base Excess -0.8 ABG Sodium VBG pH VBG pCO2 VBG pO2 VBG HCO3 VBG Total CO2 VBG O2 Saturation VBG Base Excess Hemoglobin 12.3 L Hematocrit 37.9 L Potassium 4.2 Glucose 162 H Ionized Calcium FiO2 Sodium Chloride Carbon Dioxide Anion Gap BUN Creatinine GFR Calculation BUN/Creatinine Ratio POC Glucose 115 H 179 H Calculated Osmolality Calcium Venous Ioniz Calcium Magnesium Total Bilirubin Direct Bilirubin AST ALT Alkaline Phosphatase Total Creatine Kinase CK-MB (CK-2) CK and CKMB Interp Troponin I Total Protein Albumin Globulin Albumin/Globulin Ratio Blood Type Antibody Screen Crossmatch 03/23/17 03/23/17 03/23/17 18:03 18:46 20:00 WBC RBC Hgb Hct MCV MCH MCHC RDW Plt Count MPV Neut % (Auto) Lymph % (Auto) [place] % (Auto) Eos % (Auto) Baso % (Auto) Neut # (Auto) Lymph # (Auto) [place] # (Auto) Eos # (Auto) Baso # (Auto) Total Counted Immature Gran % Nucleated RBC % Immature Gran # Segmented Neutrophils Band Neutrophils Lymphocytes Nucleated RBCs # Platelet Estimate Pappenheimer Bodies INR PT Patient/Control Mix Circ Anticoag PTT Patient Temperature ABG pH 7.378 ABG pH at Pt Temp ABG pCO2 40.3 ABG pCO2 at Pt Temp ABG pO2 98.9 H ABG pO2 at Pt Temp ABG HCO3 23.3 ABG Total CO2 21.0 L ABG O2 Saturation 97.8 ABG Base Excess -1.3 ABG Sodium VBG pH VBG pCO2 VBG pO2 VBG HCO3 VBG Total CO2 VBG O2 Saturation VBG Base Excess Hemoglobin 12.3 L Hematocrit 38.0 L Potassium 4.4 Glucose 131 H Ionized Calcium FiO2 Sodium Chloride Carbon Dioxide Anion Gap BUN Creatinine GFR Calculation BUN/Creatinine Ratio POC Glucose 138 H 134 H Calculated Osmolality Calcium Venous Ioniz Calcium Magnesium Total Bilirubin Direct Bilirubin AST ALT Alkaline Phosphatase Total Creatine Kinase CK-MB (CK-2) CK and CKMB Interp Troponin I Total Protein Albumin Globulin Albumin/Globulin Ratio Blood Type Antibody Screen Crossmatch 03/23/17 03/23/17 03/23/17 21:00 21:03 22:07 WBC RBC Hgb Hct MCV MCH MCHC RDW Plt Count MPV Neut % (Auto) Lymph % (Auto) [place] % (Auto) Eos % (Auto) Baso % (Auto) Neut # (Auto) Lymph # (Auto) [place] # (Auto) Eos # (Auto) Baso # (Auto) Total Counted Immature Gran % Nucleated RBC % Immature Gran # Segmented Neutrophils Band Neutrophils Lymphocytes Nucleated RBCs # Platelet Estimate Pappenheimer Bodies INR PT Patient/Control Mix Circ Anticoag PTT Patient Temperature ABG pH ABG pH at Pt Temp ABG pCO2 ABG pCO2 at Pt Temp ABG pO2 ABG pO2 at Pt Temp ABG HCO3 ABG Total CO2 ABG O2 Saturation ABG Base Excess ABG Sodium VBG pH VBG pCO2 VBG pO2 VBG HCO3 VBG Total CO2 VBG O2 Saturation VBG Base Excess Hemoglobin Hematocrit Potassium Glucose Ionized Calcium FiO2 Sodium Chloride Carbon Dioxide Anion Gap BUN Creatinine GFR Calculation BUN/Creatinine Ratio POC Glucose 100 137 H Calculated Osmolality Calcium Venous Ioniz Calcium Magnesium Total Bilirubin Direct Bilirubin AST ALT Alkaline Phosphatase Total Creatine Kinase 153 CK-MB (CK-2) 5.8 H CK and CKMB Interp 3.8 Troponin I 1.660 H D Total Protein Albumin Globulin Albumin/Globulin Ratio Blood Type Antibody Screen Crossmatch 03/23/17 03/24/17 03/24/17 23:17 00:21 01:09 WBC RBC Hgb Hct MCV MCH MCHC RDW Plt Count MPV Neut % (Auto) Lymph % (Auto) [place] % (Auto) Eos % (Auto) Baso % (Auto) Neut # (Auto) Lymph # (Auto) [place] # (Auto) Eos # (Auto) Baso # (Auto) Total Counted Immature Gran % Nucleated RBC % Immature Gran # Segmented Neutrophils Band Neutrophils Lymphocytes Nucleated RBCs # Platelet Estimate Pappenheimer Bodies INR PT Patient/Control Mix Circ Anticoag PTT Patient Temperature ABG pH ABG pH at Pt Temp ABG pCO2 ABG pCO2 at Pt Temp ABG pO2 ABG pO2 at Pt Temp ABG HCO3 ABG Total CO2 ABG O2 Saturation ABG Base Excess ABG Sodium VBG pH VBG pCO2 VBG pO2 VBG HCO3 VBG Total CO2 VBG O2 Saturation VBG Base Excess Hemoglobin Hematocrit Potassium Glucose Ionized Calcium FiO2 Sodium Chloride Carbon Dioxide Anion Gap BUN Creatinine GFR Calculation BUN/Creatinine Ratio POC Glucose 135 H 156 H 146 H Calculated Osmolality Calcium Venous Ioniz Calcium Magnesium Total Bilirubin Direct Bilirubin AST ALT Alkaline Phosphatase Total Creatine Kinase CK-MB (CK-2) CK and CKMB Interp Troponin I Total Protein Albumin Globulin Albumin/Globulin Ratio Blood Type Antibody Screen Crossmatch 03/24/17 03/24/17 03/24/17 01:45 03:11 03:29 WBC RBC Hgb Hct MCV MCH MCHC RDW Plt Count MPV Neut % (Auto) Lymph % (Auto) [place] % (Auto) Eos % (Auto) Baso % (Auto) Neut # (Auto) Lymph # (Auto) [place] # (Auto) Eos # (Auto) Baso # (Auto) Total Counted Immature Gran % Nucleated RBC % Immature Gran # Segmented Neutrophils Band Neutrophils Lymphocytes Nucleated RBCs # Platelet Estimate Pappenheimer Bodies INR PT Patient/Control Mix Circ Anticoag PTT Patient Temperature ABG pH 7.433 ABG pH at Pt Temp ABG pCO2 34.3 L ABG pCO2 at Pt Temp ABG pO2 151.4 H ABG pO2 at Pt Temp ABG HCO3 22.4 ABG Total CO2 23.5 ABG O2 Saturation 98.5 ABG Base Excess -1.3 ABG Sodium VBG pH VBG pCO2 VBG pO2 VBG HCO3 VBG Total CO2 VBG O2 Saturation VBG Base Excess Hemoglobin 12.1 L Hematocrit 36.0 L Potassium 3.7 Glucose 132 H Ionized Calcium FiO2 Sodium Chloride Carbon Dioxide Anion Gap BUN Creatinine GFR Calculation BUN/Creatinine Ratio POC Glucose 146 H Calculated Osmolality Calcium Venous Ioniz Calcium Magnesium Total Bilirubin Direct Bilirubin AST ALT Alkaline Phosphatase Total Creatine Kinase 191 D CK-MB (CK-2) 6.1 H CK and CKMB Interp 3.2 Troponin I 1.380 H Total Protein Albumin Globulin Albumin/Globulin Ratio Blood Type Antibody Screen Crossmatch 03/24/17 03/24/17 03/24/17 03:29 03:30 03:30 WBC 11.5 D RBC 3.99 Hgb 11.7 L Hct 33.6 L MCV 84.2 L MCH 29 MCHC 34.8 RDW 13.4 Plt Count 145 MPV 10.5 Neut % (Auto) 94.5 H Lymph % (Auto) 2.8 L [place] % (Auto) 2.1 Eos % (Auto) 0.0 Baso % (Auto) 0.1 Neut # (Auto) 10.9 H Lymph # (Auto) 0.3 L [place] # (Auto) 0.2 Eos # (Auto) 0.0 Baso # (Auto) 0.0 Total Counted 100 Immature Gran % 0.5 Nucleated RBC % 0.0 Immature Gran # 0.06 Segmented Neutrophils 91 H Band Neutrophils 5 Lymphocytes 4 L Nucleated RBCs # 0.00 Platelet Estimate Normal Pappenheimer Bodies Odd Bundle Worker INR PT Patient/Control Mix Circ Anticoag PTT Patient Temperature ABG pH 7.367 ABG pH at Pt Temp ABG pCO2 42.5 ABG pCO2 at Pt Temp ABG pO2 111.0 H ABG pO2 at Pt Temp ABG HCO3 23.6 ABG Total CO2 21.8 L ABG O2 Saturation 98.2 ABG Base Excess -1.0 ABG Sodium VBG pH VBG pCO2 VBG pO2 VBG HCO3 VBG Total CO2 VBG O2 Saturation VBG Base Excess Hemoglobin 11.7 L Hematocrit 36.1 L Potassium 4.1 4.0 Glucose 130 H 146 H Ionized Calcium FiO2 Sodium 140 Chloride 107 Carbon Dioxide 26 Anion Gap 11.1 BUN 22 H Creatinine 0.90 GFR Calculation 116 BUN/Creatinine Ratio 24.00 H POC Glucose Calculated Osmolality 283.4 Calcium 8.4 L Venous Ioniz Calcium Magnesium 1.8 Total Bilirubin 0.50 Direct Bilirubin 0.20 AST 40 H ALT 37 Alkaline Phosphatase 37 L Total Creatine Kinase CK-MB (CK-2) CK and CKMB Interp Troponin I Total Protein 6.1 L Albumin 3.4 Globulin 2.7 Albumin/Globulin Ratio 1.2 Blood Type Antibody Screen Crossmatch 03/24/17 03/24/17 03/24/17 04:13 05:00 05:40 WBC RBC Hgb Hct MCV MCH MCHC RDW Plt Count MPV Neut % (Auto) Lymph % (Auto) [place] % (Auto) Eos % (Auto) Baso % (Auto) Neut # (Auto) Lymph # (Auto) [place] # (Auto) Eos # (Auto) Baso # (Auto) Total Counted Immature Gran % Nucleated RBC % Immature Gran # Segmented Neutrophils Band Neutrophils Lymphocytes Nucleated RBCs # Platelet Estimate Pappenheimer Bodies INR PT Patient/Control Mix Circ Anticoag PTT Patient Temperature ABG pH 7.413 ABG pH at Pt Temp ABG pCO2 37.5 ABG pCO2 at Pt Temp ABG pO2 118.0 H ABG pO2 at Pt Temp ABG HCO3 24.1 ABG Total CO2 21.2 L ABG O2 Saturation 98.4 ABG Base Excess -0.4 ABG Sodium VBG pH VBG pCO2 VBG pO2 VBG HCO3 VBG Total CO2 VBG O2 Saturation VBG Base Excess Hemoglobin 12.0 L Hematocrit 37.0 L Potassium 4.1 Glucose 133 H Ionized Calcium FiO2 Sodium Chloride Carbon Dioxide Anion Gap BUN Creatinine GFR Calculation BUN/Creatinine Ratio POC Glucose 136 H 125 H Calculated Osmolality Calcium Venous Ioniz Calcium Magnesium Total Bilirubin Direct Bilirubin AST ALT Alkaline Phosphatase Total Creatine Kinase CK-MB (CK-2) CK and CKMB Interp Troponin I Total Protein Albumin Globulin Albumin/Globulin Ratio Blood Type Antibody Screen Crossmatch 03/24/17 03/24/17 06:02 06:30 WBC RBC Hgb Hct MCV MCH MCHC RDW Plt Count MPV Neut % (Auto) Lymph % (Auto) [place] % (Auto) Eos % (Auto) Baso % (Auto) Neut # (Auto) Lymph # (Auto) [place] # (Auto) Eos # (Auto) Baso # (Auto) Total Counted Immature Gran % Nucleated RBC % Immature Gran # Segmented Neutrophils Band Neutrophils Lymphocytes Nucleated RBCs # Platelet Estimate Pappenheimer Bodies INR PT Patient/Control Mix Circ Anticoag PTT Patient Temperature ABG pH 7.387 ABG pH at Pt Temp ABG pCO2 40.6 ABG pCO2 at Pt Temp ABG pO2 101.0 H ABG pO2 at Pt Temp ABG HCO3 24.0 ABG Total CO2 21.7 L ABG O2 Saturation 98.0 ABG Base Excess -0.5 ABG Sodium VBG pH VBG pCO2 VBG pO2 VBG HCO3 VBG Total CO2 VBG O2 Saturation VBG Base Excess Hemoglobin 11.8 L Hematocrit 36.5 L Potassium 4.0 Glucose 133 H Ionized Calcium FiO2 Sodium Chloride Carbon Dioxide Anion Gap BUN Creatinine GFR Calculation BUN/Creatinine Ratio POC Glucose 125 H Calculated Osmolality Calcium Venous Ioniz Calcium Magnesium Total Bilirubin Direct Bilirubin AST ALT Alkaline Phosphatase Total Creatine Kinase CK-MB (CK-2) CK and CKMB Interp Troponin I Total Protein Albumin Globulin Albumin/Globulin Ratio Blood Type Antibody Screen Crossmatch Quality Measures - VTE Contraindication to Pharmacological VTE Prophylaxis: High Risk of Bleeding
--- NOTE | 2017-03-24 09:11 | XRay Report ---
XR chest 1V portable Indication: Chest tube removal, pneumothorax Comparison: 23 March 2017 Findings: The heart and mediastinum are stable in size and configuration. Support structures have been removed except for the right internal jugular catheter. No pneumothorax is seen. The pulmonary vascularity is slightly increased but similar to previous. No other lung infiltrates, effusions or other abnormality is demonstrated. Impression: Removal of support structures. No other significant changes. PROCEDURE INTERPRETED AT [facility] DEPARTMENT OF RADIOLOGY Final Report Signed by: Dr. Maxwell Uribe
[2017-03-24] MEDS: amLODIPine 10 MG TABLET PO SCH (09:37)
[2017-03-24] MEDS: CARVEDILOL 25 MG TABLET PO SCH ×2 (09:38→21:03)
[2017-03-24] MEDS: CHOLECALCIFEROL 1,000 UNIT TABLET PO SCH (09:38)
[2017-03-24] MEDS: ENALAPRIL 10 MG TABLET PO SCH ×2 (09:38→21:04)
[2017-03-24] MEDS: ASPIRIN EC 81 MG TABLET PO SCH (09:38)
[2017-03-24] MEDS: CHLORHEXIDINE 0.12% ORAL RINSE 60 ML BOTTLE SWISH/SPIT SCH ×3 (09:42→21:06)
[2017-03-24] MEDS: COENZYME Q10 100 MG CAPSULE PO SCH (09:50)
[2017-03-24] MEDS ORDERED: ACETAMINOPHEN 325 MG TABLET PO PRN (11:23)
[2017-03-24] MEDS ORDERED: MAGNESIUM SULF RIDER 2 GM in PREMIX 1 EACH IV PRN (11:23)
[2017-03-24] MEDS ORDERED: ONDANSETRON 4 MG/2 ML VIAL IV PRN (11:23)
[2017-03-24] MEDS ORDERED: MAGNESIUM HYDROXIDE SUSP 30 ML UDCUP PO PRN (11:23)
[2017-03-24] MEDS ORDERED: DEXTROSE 50% 25 GM/50 ML VIAL IV PRN ×3 (11:23→15:47)
[2017-03-24] MEDS ORDERED: POTASSIUM CHLORIDE 20 MEQ TABLET PO PRN (11:23)
[2017-03-24] MEDS ORDERED: MORPHINE 2 MG/1 ML SYRINGE IV PRN (11:23)
[2017-03-24] MEDS ORDERED: SODIUM CHLOR 0.45% KCL 20 MEQ 20 MEQ/1,000 ML BAG IV SCH (11:23)
[2017-03-24] MEDS ORDERED: ALUMINUM/MAGNES/SIMETH MAX STR 30 ML UDCUP PO PRN (11:23)
[2017-03-24] MEDS ORDERED: ZALEPLON 5 MG CAPSULE PO PRN (11:23)
[2017-03-24] MEDS ORDERED: MAGNESIUM SULF RIDER 4 GM in PREMIX 1 EACH IV PRN (11:23)
[2017-03-24] MEDS ORDERED: GLUCAGON 1 MG VIAL IM PRN ×3 (11:23→15:47)
[2017-03-24] MEDS: INSULIN REGULAR DRIP 100 ML IV SCH (13:25)
[2017-03-24] MEDS: SODIUM CHLORIDE 0.45% 1,000 ML IV SCH ×2 (13:25)
[2017-03-24] MEDS: DOCUSATE SODIUM 100 MG CAPSULE PO SCH (13:49)
[2017-03-24] MEDS: PANTOPRAZOLE 40 MG TABLET PO SCH (13:49)
[2017-03-24] MEDS: FERROUS SULFATE 325 MG TABLET PO SCH (13:49)
[2017-03-24] MEDS: metFORMIN 500 MG TABLET PO SCH ×3 (14:03→21:10)
[2017-03-24] MEDS: INSULIN REGULAR 100 UNIT/ML SUBCUT SCH ×2 (16:21→21:02)
[2017-03-24] MEDS: oxyCODONE/ACETAMINOPHEN 5-325 MG TABLET PO PRN (17:39)
[2017-03-24] MEDS: PRAMIPEXOLE 0.25 MG TABLET PO SCH (21:03)
[2017-03-24] MEDS: SERTRALINE 50 MG TABLET PO SCH (21:04)
[2017-03-24] MEDS: SIMVASTATIN 20 MG TABLET PO SCH (21:04)
[2017-03-25] MEDS: KETOROLAC 30 MG/1 ML VIAL IV SCH ×2 (00:09→06:01)
[2017-03-25 05:15] LABS: Basophils % 0.1 % (0.0-0.8); Hematocrit 33.9 VOL% (42.0-52.0); Hemoglobin 11.5 GM/DL (14.0-18.0); Lymphocytes # 0.6 10*3/uL (1.4-4.0); Mean Corpuscular HGB Conc 33.9 GM/DL (32-36); Mean Corpuscular Hemoglobin 29 PG (27-34); Mean Platelet Volume 10.8 FL (9.6-12.0); Monocytes # 0.4 10*3/uL (0.11-0.8); Monocytes % 4.5 % (1.7-12.7); Neutrophils # 8.7 10*3/uL (1.4-7.4); Neutrophils % 88.4 % (38.7-73.9); Platelet Count 140 T/CUMM (130-400); Red Blood Count 3.94 MC/CUMM (3.8-5.5); Red Cell Distribution Width 13.5 % (9.3-17.3); White Blood Count 9.8 T/CUMM (4-12)
[2017-03-25 05:47] LABS: Alanine Aminotransferase 31 U/L (16-61); Albumin 3.2 G/DL (3.4-5.0); Alkaline Phosphatase 43 U/L (45-117); Aspartate Amino Transferase 27 U/L (0-37); Bilirubin,Indirect 0.5 MG/DL (0.0-1.0); Blood Urea Nitrogen 33 MG/DL (7-18); Calcium 8.2 MG/DL (8.5-10.1); Glucose 205 MG/DL (74-106); Magnesium 2.4 MG/DL (1.8-2.4); Osmolality,Calculated 289.5 MOS/KG (273-304); Potassium 4.5 MMOL/L (3.5-5.1); Sodium 139 MMOL/L (136-145); Total Protein 5.9 G/DL (6.4-8.3)
[2017-03-25 05:48] LABS: Troponin I Only 0.661 NG/ML (0.00-0.045)
[2017-03-25] MEDS ORDERED: FUROSEMIDE 40 MG/4 ML VIAL IV ONE (06:00)
--- NOTE | 2017-03-25 08:03 | Operative Note ---
Date of procedure: 03/23/17 Pre-op diagnosis: Coronary artery disease Post-op diagnosis: same Procedure: Procedure: Coronary bypass grafting 1 with a saphenous vein graft to the posterior descending coronary artery. Findings: Patient is a 76-year-old man who has had a remote myocardial infarction in 1992. 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 There is a critical lesion and a very large right coronary artery but calcification in the main right coronary artery. Circumflex coronary artery is without significant obstruction. At the time of surgery left ventricular function was to noted to be normal and no distal target was identified in the anterior descending distribution. There was calcification in the main right coronary artery but the posterior descending coronary artery was a large vessel and free of disease at the site of anastomosis. Saphenous vein graft was placed to this vessel. Patient tolerated procedure well and returned to recovery in satisfactory condition. Procedure: Patient brought to the operating room placed on the operating table in supine position. After satisfactory induction of general anesthesia the chest abdomen and legs were prepped and draped in sterile fashion. Greater saphenous vein was harvested from the right lower leg and prepared is an arterial graft. Incision in the leg was closed with 3-0 subcutaneous Monocryl and skin [place] in the skin. A standard sternotomy incision was made in the sternum was divided and the heart suspended in a pericardial cradle. Heart was prepared for cardiopulmonary bypass with systemic heparinization and cannulation of the ascending aorta and right atrium. Cardiopulmonary bypass was begun and the aorta was crossclamped and the heart arrested with cardioplegia solution injected into the aortic root. The distal anastomosis was constructed as noted above and then the aorta was unclamped reestablishing cardiac action. Proximal anastomosis was constructed between the inflow end of the saphenous vein graft in the ascending aorta. Following this the patient was weaned from cardiopulmonary bypass without difficulty and heparin effect reversed with protamine and decannulation carried out with a defects in the ascending aorta and right atrium closed with 3-0 Prolene. Operative field was inspected for hemostasis and this was considered adequate the incision was closed with interrupted stainless steel wire and the sternum 0 Monopril in the presternal fascia and 3-0 subcuticular Monocryl. 2 chest tubes were left in the anterior mediastinum and brought out through separate stab incisions. Sterile dressings were applied and the patient was returned to recovery in satisfactory condition. Anesthesia: KARLAA Surgeon / Physician: Jonas Guido Estimated blood loss: other (Unable to determine because of cardiopulmonary bypass) Condition: stable Disposition: ICU Results - Labs CBC & BMP: 03/25/17 04:24 03/25/17 04:24 Discharge Plan - Discharge Medications No Action Sertraline [Zoloft] 50 mg PO BEDTIME Simvastatin [Zocor] 20 mg PO BEDTIME Aspirin EC Tab 81 mg PO DAILY Ubidecarenone [Co Q-10] 400 mg PO DAILY Enalapril Maleate 10 mg PO BID #60 tablet metFORMIN [Glucophage] 500 mg PO TID #0 Cholecalciferol (Vitamin D3) [Vitamin D3] 1,000 unit PO DAILY Pramipexole [Mirapex] 0.25 mg PO BEDTIME Carvedilol 25 mg PO BID amLODIPine [Norvasc] 10 mg PO DAILY #30 tablet - Follow Up or Referral - Forms/Instructions
--- NOTE | 2017-03-25 08:04 | Cardiothoracic Progress Note ---
Cardiothoracic Subjective Interval history: Patient is awake alert and extubated and feeling well. Vital signs have been stable and the patient is breathing comfortably. Wounds are clean and dry. We will gradually increase the patient's activity according to routine postoperative protocol but overall his progress appears satisfactory. Exam (Progress Note) - Constitutional Vitals: Period Temp Pulse Resp BP Sys/Macias Pulse Ox Last 24 Hr 96.5 F-98.4 F 55-72 10-20 126-198/50-81 92-96 Result/EKG - Labs CBC & BMP: 03/25/17 04:24 03/25/17 04:24 Labs: Laboratory Results - last 24 hr 03/22/17 03/24/17 03/24/17 10:54 08:06 09:50 WBC RBC Hgb Hct MCV MCH MCHC RDW Plt Count MPV Neut % (Auto) Lymph % (Auto) [place] % (Auto) Eos % (Auto) Baso % (Auto) Neut # (Auto) Lymph # (Auto) [place] # (Auto) Eos # (Auto) Baso # (Auto) Immature Gran % Nucleated RBC % Immature Gran # Nucleated RBCs # Sodium Potassium 4.3 Chloride Carbon Dioxide Anion Gap BUN Creatinine GFR Calculation BUN/Creatinine Ratio Glucose POC Glucose 136 H Calculated Osmolality Calcium Magnesium Total Bilirubin Direct Bilirubin Indirect Bilirubin AST ALT Alkaline Phosphatase Total Creatine Kinase CK-MB (CK-2) Troponin I Total Protein Albumin Globulin Albumin/Globulin Ratio Crossmatch See Detail 03/24/17 03/24/17 03/25/17 15:41 19:38 04:24 WBC 9.8 RBC 3.94 Hgb 11.5 L Hct 33.9 L MCV 86.0 L MCH 29 MCHC 33.9 RDW 13.5 Plt Count 140 MPV 10.8 Neut % (Auto) 88.4 H Lymph % (Auto) 6.0 L [place] % (Auto) 4.5 Eos % (Auto) 0.0 Baso % (Auto) 0.1 Neut # (Auto) 8.7 H Lymph # (Auto) 0.6 L [place] # (Auto) 0.4 Eos # (Auto) 0.0 Baso # (Auto) 0.0 Immature Gran % 1.0 Nucleated RBC % 0.0 Immature Gran # 0.10 Nucleated RBCs # 0.00 Sodium Potassium Chloride Carbon Dioxide Anion Gap BUN Creatinine GFR Calculation BUN/Creatinine Ratio Glucose POC Glucose 256 H 341 H Calculated Osmolality Calcium Magnesium Total Bilirubin Direct Bilirubin Indirect Bilirubin AST ALT Alkaline Phosphatase Total Creatine Kinase CK-MB (CK-2) Troponin I Total Protein Albumin Globulin Albumin/Globulin Ratio Crossmatch 03/25/17 03/25/17 04:24 07:21 WBC RBC Hgb Hct MCV MCH MCHC RDW Plt Count MPV Neut % (Auto) Lymph % (Auto) [place] % (Auto) Eos % (Auto) Baso % (Auto) Neut # (Auto) Lymph # (Auto) [place] # (Auto) Eos # (Auto) Baso # (Auto) Immature Gran % Nucleated RBC % Immature Gran # Nucleated RBCs # Sodium 139 Potassium 4.5 Chloride 105 Carbon Dioxide 26 Anion Gap 12.5 BUN 33 H Creatinine 1.00 GFR Calculation 102 BUN/Creatinine Ratio 33.00 H Glucose 205 H POC Glucose 191 H Calculated Osmolality 289.5 Calcium 8.2 L Magnesium 2.4 Total Bilirubin 0.60 Direct Bilirubin 0.10 Indirect Bilirubin 0.5 AST 27 ALT 31 Alkaline Phosphatase 43 L Total Creatine Kinase 329 H D CK-MB (CK-2) 3.5 Troponin I 0.661 H D Total Protein 5.9 L Albumin 3.2 L Globulin 2.7 Albumin/Globulin Ratio 1.1 Crossmatch Quality Measures - VTE Contraindication to Pharmacological VTE Prophylaxis: High Risk of Bleeding
[2017-03-25] MEDS ORDERED: KETOROLAC 30 MG/1 ML VIAL IV PRN (08:13)
[2017-03-25] MEDS: INSULIN REGULAR 100 UNIT/ML SUBCUT SCH ×4 (09:20→21:15)
[2017-03-25] MEDS: CHOLECALCIFEROL 1,000 UNIT TABLET PO SCH (09:27)
[2017-03-25] MEDS: ASPIRIN EC 81 MG TABLET PO SCH (09:27)
[2017-03-25] MEDS: amLODIPine 10 MG TABLET PO SCH (09:27)
[2017-03-25] MEDS: PANTOPRAZOLE 40 MG TABLET PO SCH (09:28)
[2017-03-25] MEDS: CARVEDILOL 25 MG TABLET PO SCH ×2 (09:28→21:16)
[2017-03-25] MEDS: FERROUS SULFATE 325 MG TABLET PO SCH (09:28)
[2017-03-25] MEDS: DOCUSATE SODIUM 100 MG CAPSULE PO SCH (09:28)
[2017-03-25] MEDS: metFORMIN 500 MG TABLET PO SCH ×3 (09:28→21:16)
[2017-03-25] MEDS: ENALAPRIL 10 MG TABLET PO SCH ×2 (09:28→21:16)
--- NOTE | 2017-03-25 09:29 | XRay Report ---
XR chest 1V portable Indication: Shortness of breath Comparison: 24 March 2017 Findings: The heart and mediastinum are stable in size and configuration. Right internal jugular catheters unchanged in position. The pulmonary vascularity is increased with bilateral increased interstitial lung density. No other lung infiltrates, effusions, pneumothorax or other abnormality is demonstrated. Impression: Findings suggest increasing cardiac decompensation. PROCEDURE INTERPRETED AT [facility] DEPARTMENT OF RADIOLOGY Final Report Signed by: Dr. Maxwell Uribe
[2017-03-25] MEDS: CHLORHEXIDINE 0.12% ORAL RINSE 60 ML BOTTLE SWISH/SPIT SCH ×2 (09:30→21:17)
[2017-03-25] MEDS: COENZYME Q10 100 MG CAPSULE PO SCH (09:30)
[2017-03-25] MEDS: PRAMIPEXOLE 0.25 MG TABLET PO SCH (21:16)
[2017-03-25] MEDS: SERTRALINE 50 MG TABLET PO SCH (21:17)
[2017-03-25] MEDS: SIMVASTATIN 20 MG TABLET PO SCH (21:17)
[2017-03-26 05:44] LABS: Basophils % 0.1 % (0.0-0.8); Eosinophils % 0.4 % (0.00-10.9); Hemoglobin 10.9 GM/DL (14.0-18.0); Immature Granulocytes % 1.3 %; Lymphocytes # 0.8 10*3/uL (1.4-4.0); Lymphocytes % 11.2 % (21.2-54.2); Mean Corpuscular HGB Conc 34.1 GM/DL (32-36); Mean Corpuscular Hemoglobin 29 PG (27-34); Mean Corpuscular Volume 85.1 FL (87-102); Mean Platelet Volume 10.9 FL (9.6-12.0); Monocytes # 0.7 10*3/uL (0.11-0.8); Monocytes % 9.3 % (1.7-12.7); Neutrophils # 5.8 10*3/uL (1.4-7.4); Neutrophils % 77.7 % (38.7-73.9); Platelet Count 120 T/CUMM (130-400); Red Blood Count 3.76 MC/CUMM (3.8-5.5); Red Cell Distribution Width 13.8 % (9.3-17.3); White Blood Count 7.5 T/CUMM (4-12)
[2017-03-26 06:27] LABS: Alanine Aminotransferase 30 U/L (16-61); Alkaline Phosphatase 38 U/L (45-117); Aspartate Amino Transferase 25 U/L (0-37); Bilirubin,Indirect 0.4 MG/DL (0.0-1.0); Blood Urea Nitrogen 33 MG/DL (7-18); Calcium 7.6 MG/DL (8.5-10.1); Glucose 149 MG/DL (74-106); Magnesium 2.2 MG/DL (1.8-2.4); Osmolality,Calculated 286.5 MOS/KG (273-304); Potassium 4.3 MMOL/L (3.5-5.1); Sodium 139 MMOL/L (136-145); Total Protein 5.7 G/DL (6.4-8.3)
[2017-03-26 06:32] LABS: Troponin I Only 0.435 NG/ML (0.00-0.045)
--- NOTE | 2017-03-26 07:33 | XRay Report ---
XR chest 1V portable Indication: Shortness of breath Comparison: 25 March 2017 Findings: The heart and mediastinum are stable in size and configuration. Right internal jugular catheter is unchanged in position. The pulmonary vascularity is decreasing with bilateral decreased interstitial lung density. No other lung infiltrates, effusions, pneumothorax or other abnormality is demonstrated. Impression: Findings suggest improving cardiac decompensation. PROCEDURE INTERPRETED AT [facility] DEPARTMENT OF RADIOLOGY Final Report Signed by: Dr. Maxwell Uribe
--- NOTE | 2017-03-26 09:00 | Cardiothoracic Progress Note ---
Cardiothoracic Subjective Interval history: Patient is slowly improving. He is up walking without assistance. Vital signs are stable and he is breathing comfortably. He may be ready for discharge tomorrow but we can make that decision at that time. Overall his progress is satisfactory. Exam (Progress Note) - Constitutional Vitals: Period Temp Pulse Resp BP Sys/[place]ias Pulse Ox Last 24 Hr 96.7 F-97.5 F 41-58 16-20 123-168/61-74 92-97 Result/EKG - Labs CBC & BMP: 03/26/17 04:26 03/26/17 04:27 Labs: Laboratory Results - last 24 hr 03/25/17 03/25/17 03/25/17 11:49 15:56 20:29 WBC RBC Hgb Hct MCV MCH MCHC RDW Plt Count MPV Neut % (Auto) Lymph % (Auto) [place] % (Auto) Eos % (Auto) Baso % (Auto) Neut # (Auto) Lymph # (Auto) [place] # (Auto) Eos # (Auto) Baso # (Auto) Immature Gran % Nucleated RBC % Immature Gran # Nucleated RBCs # Sodium Potassium Chloride Carbon Dioxide Anion Gap BUN Creatinine GFR Calculation BUN/Creatinine Ratio Glucose POC Glucose 204 H 195 H 231 H Calculated Osmolality Calcium Magnesium Total Bilirubin Direct Bilirubin Indirect Bilirubin AST ALT Alkaline Phosphatase Total Creatine Kinase CK-MB (CK-2) Troponin I Total Protein Albumin Globulin Albumin/Globulin Ratio 03/26/17 03/26/17 03/26/17 04:26 04:27 07:59 WBC 7.5 RBC 3.76 L Hgb 10.9 L Hct 32.0 L MCV 85.1 L MCH 29 MCHC 34.1 RDW 13.8 Plt Count 120 L MPV 10.9 Neut % (Auto) 77.7 H Lymph % (Auto) 11.2 L [place] % (Auto) 9.3 Eos % (Auto) 0.4 Baso % (Auto) 0.1 Neut # (Auto) 5.8 Lymph # (Auto) 0.8 L [place] # (Auto) 0.7 Eos # (Auto) 0.0 Baso # (Auto) 0.0 Immature Gran % 1.3 Nucleated RBC % 0.0 Immature Gran # 0.10 Nucleated RBCs # 0.00 Sodium 139 Potassium 4.3 Chloride 105 Carbon Dioxide 27 Anion Gap 11.3 BUN 33 H Creatinine 0.90 GFR Calculation 117 BUN/Creatinine Ratio 36.00 H Glucose 149 H POC Glucose 155 H Calculated Osmolality 286.5 Calcium 7.6 L Magnesium 2.2 Total Bilirubin 0.60 Direct Bilirubin 0.20 Indirect Bilirubin 0.4 AST 25 ALT 30 Alkaline Phosphatase 38 L Total Creatine Kinase 163 D CK-MB (CK-2) 2.0 Troponin I 0.435 H D Total Protein 5.7 L Albumin 3.0 L Globulin 2.7 Albumin/Globulin Ratio 1.1 Quality Measures - VTE Contraindication to Pharmacological VTE Prophylaxis: High Risk of Bleeding Specialty Discharge - Follow Up or Referrals
[2017-03-26] MEDS: amLODIPine 10 MG TABLET PO SCH (09:02)
[2017-03-26] MEDS: metFORMIN 500 MG TABLET PO SCH ×3 (09:03→21:05)
[2017-03-26] MEDS: ASPIRIN EC 81 MG TABLET PO SCH (09:03)
[2017-03-26] MEDS: CHOLECALCIFEROL 1,000 UNIT TABLET PO SCH (09:03)
[2017-03-26] MEDS: FERROUS SULFATE 325 MG TABLET PO SCH (09:03)
[2017-03-26] MEDS: PANTOPRAZOLE 40 MG TABLET PO SCH (09:04)
[2017-03-26] MEDS: ENALAPRIL 10 MG TABLET PO SCH ×2 (09:04→21:19)
[2017-03-26] MEDS: COENZYME Q10 100 MG CAPSULE PO SCH (09:06)
[2017-03-26] MEDS: INSULIN REGULAR 100 UNIT/ML SUBCUT SCH ×4 (09:06→21:05)
[2017-03-26] MEDS: DOCUSATE SODIUM 100 MG CAPSULE PO SCH (09:25)
[2017-03-26] MEDS: CHLORHEXIDINE 0.12% ORAL RINSE 60 ML BOTTLE SWISH/SPIT SCH ×2 (10:24→21:20)
[2017-03-26] MEDS: MUPIROCIN 2% OINT 22 GM TUBE TOP SCH ×2 (11:11→21:06)
[2017-03-26] MEDS: oxyCODONE/ACETAMINOPHEN 5-325 MG TABLET PO PRN (14:07)
[2017-03-26] MEDS: PRAMIPEXOLE 0.25 MG TABLET PO SCH (21:05)
[2017-03-26] MEDS: SERTRALINE 50 MG TABLET PO SCH (21:05)
[2017-03-26] MEDS: SIMVASTATIN 20 MG TABLET PO SCH (21:05)
[2017-03-27] MEDS: CHOLECALCIFEROL 1,000 UNIT TABLET PO SCH (08:37)
[2017-03-27] MEDS: metFORMIN 500 MG TABLET PO SCH ×3 (08:37→21:33)
[2017-03-27] MEDS: FERROUS SULFATE 325 MG TABLET PO SCH (08:37)
[2017-03-27] MEDS: amLODIPine 10 MG TABLET PO SCH (08:38)
[2017-03-27] MEDS: ASPIRIN EC 81 MG TABLET PO SCH (08:38)
[2017-03-27] MEDS: oxyCODONE/ACETAMINOPHEN 5-325 MG TABLET PO PRN ×3 (08:38→21:40)
[2017-03-27] MEDS: ENALAPRIL 10 MG TABLET PO SCH ×2 (08:38→21:40)
[2017-03-27] MEDS: PANTOPRAZOLE 40 MG TABLET PO SCH (08:38)
[2017-03-27] MEDS: DOCUSATE SODIUM 100 MG CAPSULE PO SCH (08:38)
[2017-03-27] MEDS: MUPIROCIN 2% OINT 22 GM TUBE TOP SCH ×2 (08:39→21:34)
[2017-03-27] MEDS: INSULIN REGULAR 100 UNIT/ML SUBCUT SCH ×4 (08:39→21:35)
[2017-03-27] MEDS: COENZYME Q10 100 MG CAPSULE PO SCH (08:40)
[2017-03-27] MEDS: CHLORHEXIDINE 0.12% ORAL RINSE 60 ML BOTTLE SWISH/SPIT SCH ×2 (08:41→21:34)
--- NOTE | 2017-03-27 08:53 | Cardiothoracic Progress Note ---
Cardiothoracic Subjective Interval history: Patient does not feel quite as well today. He does not have any specific complaints. Vital signs are stable and he is breathing comfortably. He is only 4 days postop and I think he bears watching for another day or 2. I have discontinued his atrial pacing wires. Exam (Progress Note) - Constitutional Vitals: Period Temp Pulse Resp BP Sys/[place]ias Pulse Ox Last 24 Hr 97 F-98.0 F 55-66 16-20 130-176/61-76 90-99 Result/EKG - Labs CBC & BMP: 03/26/17 04:26 03/26/17 04:27 Labs: Laboratory Results - last 24 hr 03/26/17 03/26/17 03/26/17 11:45 15:47 19:58 POC Glucose 137 H 208 H 179 H 03/27/17 07:14 POC Glucose 159 H Quality Measures - VTE Contraindication to Pharmacological VTE Prophylaxis: High Risk of Bleeding Specialty Discharge - Follow Up or Referrals
[2017-03-27] MEDS: CARVEDILOL 12.5 MG TABLET PO SCH ×3 (09:22→21:33)
[2017-03-27] MEDS: PRAMIPEXOLE 0.25 MG TABLET PO SCH (21:33)
[2017-03-27] MEDS: SIMVASTATIN 20 MG TABLET PO SCH (21:33)
[2017-03-27] MEDS: SERTRALINE 50 MG TABLET PO SCH (21:33)
[2017-03-28] MEDS: oxyCODONE/ACETAMINOPHEN 5-325 MG TABLET PO PRN ×4 (03:59→21:20)
[2017-03-28 04:56] LABS: Basophils % 0.4 % (0.0-0.8); Eosinophils # 0.4 10*3/uL (0.0-0.87); Eosinophils % 3.5 % (0.00-10.9); Hematocrit 39.2 VOL% (42.0-52.0); Hemoglobin 13.5 GM/DL (14.0-18.0); Immature Granulocytes % 1.9 %; Immature Granulocytes Absolute 0.21 #; Lymphocytes % 18.3 % (21.2-54.2); Mean Corpuscular HGB Conc 34.4 GM/DL (32-36); Mean Corpuscular Hemoglobin 29 PG (27-34); Mean Corpuscular Volume 83.4 FL (87-102); Mean Platelet Volume 10.4 FL (9.6-12.0); Monocytes # 1.1 10*3/uL (0.11-0.8); Monocytes % 10.3 % (1.7-12.7); Neutrophils # 7.2 10*3/uL (1.4-7.4); Neutrophils % 65.6 % (38.7-73.9); Platelet Count 242 T/CUMM (130-400); Red Cell Distribution Width 13.8 % (9.3-17.3)
[2017-03-28 05:34] LABS: Alanine Aminotransferase 35 U/L (16-61); Albumin 3.3 G/DL (3.4-5.0); Alkaline Phosphatase 50 U/L (45-117); Aspartate Amino Transferase 25 U/L (0-37); Bilirubin,Indirect 1.8 MG/DL (0.0-1.0); Blood Urea Nitrogen 18 MG/DL (7-18); Calcium 8.5 MG/DL (8.5-10.1); Glucose 146 MG/DL (74-106); Magnesium 2.2 MG/DL (1.8-2.4); Osmolality,Calculated 277.8 MOS/KG (273-304); Potassium 4.1 MMOL/L (3.5-5.1); Sodium 137 MMOL/L (136-145); Total Protein 6.6 G/DL (6.4-8.3)
[2017-03-28 05:36] LABS: Troponin I Only 0.145 NG/ML (0.00-0.045)
--- NOTE | 2017-03-28 08:21 | XRay Report ---
XR chest 2V Indication: Shortness of breath. Comparison: Chest x-ray 03/26/2017 Technique: PA and lateral chest x-ray was performed. Findings: Heart size appears within normal limits. Prior sternotomy is demonstrated. Right-sided central venous catheter is stable. The appearance of the lung parenchyma suggests little change. Nonspecific interstitial prominence in the lung bases and blunting of the bilateral costophrenic angles is again present. Upper lungs are clear. Bones and soft tissues demonstrate no significant abnormalities. Impression: 1. Small bilateral pleural effusions are present. 2. Appearance of the chest suggests little interval change. 03/28/2017 8:15 AM PROCEDURE INTERPRETED AT [facility] DEPARTMENT OF RADIOLOGY Final Report Signed by: Dr. Stephen Zuñiga
[2017-03-28] MEDS: DOCUSATE SODIUM 100 MG CAPSULE PO SCH (08:30)
[2017-03-28] MEDS: CHOLECALCIFEROL 1,000 UNIT TABLET PO SCH (08:30)
[2017-03-28] MEDS: FERROUS SULFATE 325 MG TABLET PO SCH (08:30)
[2017-03-28] MEDS: amLODIPine 10 MG TABLET PO SCH (08:30)
[2017-03-28] MEDS: PANTOPRAZOLE 40 MG TABLET PO SCH (08:30)
[2017-03-28] MEDS: MUPIROCIN 2% OINT 22 GM TUBE TOP SCH ×2 (08:31→21:21)
[2017-03-28] MEDS: COENZYME Q10 100 MG CAPSULE PO SCH (08:31)
[2017-03-28] MEDS: ASPIRIN EC 81 MG TABLET PO SCH (08:31)
[2017-03-28] MEDS: CARVEDILOL 12.5 MG TABLET PO SCH ×2 (08:31→21:20)
[2017-03-28] MEDS: metFORMIN 500 MG TABLET PO SCH ×3 (08:31→21:20)
[2017-03-28] MEDS: INSULIN REGULAR 100 UNIT/ML SUBCUT SCH ×4 (08:35→21:21)
[2017-03-28] MEDS: ENALAPRIL 10 MG TABLET PO SCH ×2 (08:37→21:20)
[2017-03-28] MEDS: CHLORHEXIDINE 0.12% ORAL RINSE 60 ML BOTTLE SWISH/SPIT SCH ×2 (08:37→21:21)
--- NOTE | 2017-03-28 09:13 | Cardiothoracic Progress Note ---
Cardiothoracic Subjective Interval history: Patient looks and feels better today. Vital signs been stable and he is breathing comfortably. Laboratory work all looks essentially okay. Chest x- ray also looks acceptable for postoperative day 5. He is increasing his activity and is walking with minimal assistance. I think that he will be ready for discharge tomorrow. Exam (Progress Note) - Constitutional Vitals: Period Temp Pulse Resp BP Sys/Macias Pulse Ox Last 24 Hr 97.1 F-98.6 F 56-66 16-20 135-178/50-82 92-98 Result/EKG - Labs CBC & BMP: 03/28/17 04:33 03/28/17 04:33 Labs: Laboratory Results - last 24 hr 03/27/17 03/27/17 03/27/17 11:16 15:33 19:44 WBC RBC Hgb Hct MCV MCH MCHC RDW Plt Count MPV Neut % (Auto) Lymph % (Auto) [place] % (Auto) Eos % (Auto) Baso % (Auto) Neut # (Auto) Lymph # (Auto) [place] # (Auto) Eos # (Auto) Baso # (Auto) Immature Gran % Nucleated RBC % Immature Gran # Nucleated RBCs # Sodium Potassium Chloride Carbon Dioxide Anion Gap BUN Creatinine GFR Calculation BUN/Creatinine Ratio Glucose POC Glucose 143 H 159 H 153 H Calculated Osmolality Calcium Magnesium Total Bilirubin Direct Bilirubin Indirect Bilirubin AST ALT Alkaline Phosphatase Total Creatine Kinase CK-MB (CK-2) Troponin I Total Protein Albumin Globulin Albumin/Globulin Ratio 03/28/17 03/28/17 03/28/17 04:33 04:33 07:22 WBC 11.0 D RBC 4.70 D Hgb 13.5 L D Hct 39.2 L MCV 83.4 L MCH 29 MCHC 34.4 RDW 13.8 Plt Count 242 D MPV 10.4 Neut % (Auto) 65.6 Lymph % (Auto) 18.3 L [place] % (Auto) 10.3 Eos % (Auto) 3.5 Baso % (Auto) 0.4 Neut # (Auto) 7.2 Lymph # (Auto) 2.0 [place] # (Auto) 1.1 H Eos # (Auto) 0.4 Baso # (Auto) 0.0 Immature Gran % 1.9 Nucleated RBC % 0.0 Immature Gran # 0.21 Nucleated RBCs # 0.00 Sodium 137 Potassium 4.1 Chloride 102 Carbon Dioxide 27 Anion Gap 12.1 BUN 18 Creatinine 0.90 GFR Calculation 118 BUN/Creatinine Ratio 20.00 Glucose 146 H POC Glucose < 20 L* Calculated Osmolality 277.8 Calcium 8.5 Magnesium 2.2 Total Bilirubin 2.00 H Direct Bilirubin 0.20 Indirect Bilirubin 1.8 H AST 25 ALT 35 Alkaline Phosphatase 50 Total Creatine Kinase 56 D CK-MB (CK-2) < 1.0 Troponin I 0.145 H D Total Protein 6.6 Albumin 3.3 L Globulin 3.3 Albumin/Globulin Ratio 1.0 L 03/28/17 07:24 WBC RBC Hgb Hct MCV MCH MCHC RDW Plt Count MPV Neut % (Auto) Lymph % (Auto) [place] % (Auto) Eos % (Auto) Baso % (Auto) Neut # (Auto) Lymph # (Auto) [place] # (Auto) Eos # (Auto) Baso # (Auto) Immature Gran % Nucleated RBC % Immature Gran # Nucleated RBCs # Sodium Potassium Chloride Carbon Dioxide Anion Gap BUN Creatinine GFR Calculation BUN/Creatinine Ratio Glucose POC Glucose 150 H Calculated Osmolality Calcium Magnesium Total Bilirubin Direct Bilirubin Indirect Bilirubin AST ALT Alkaline Phosphatase Total Creatine Kinase CK-MB (CK-2) Troponin I Total Protein Albumin Globulin Albumin/Globulin Ratio Quality Measures - VTE Contraindication to Pharmacological VTE Prophylaxis: High Risk of Bleeding Specialty Discharge - Follow Up or Referrals
[2017-03-28] MEDS: SERTRALINE 50 MG TABLET PO SCH (21:19)
[2017-03-28] MEDS: PRAMIPEXOLE 0.25 MG TABLET PO SCH (21:20)
[2017-03-28] MEDS: SIMVASTATIN 20 MG TABLET PO SCH (21:20)
[2017-03-29] MEDS: oxyCODONE/ACETAMINOPHEN 5-325 MG TABLET PO PRN (03:51)
[2017-03-29 05:21] LABS: Basophils % 0.3 % (0.0-0.8); Eosinophils # 0.4 10*3/uL (0.0-0.87); Eosinophils % 4.5 % (0.00-10.9); Hematocrit 34.2 VOL% (42.0-52.0); Hemoglobin 11.9 GM/DL (14.0-18.0); Immature Granulocytes % 1.8 %; Immature Granulocytes Absolute 0.16 #; Lymphocytes # 1.5 10*3/uL (1.4-4.0); Lymphocytes % 16.8 % (21.2-54.2); Mean Corpuscular HGB Conc 34.8 GM/DL (32-36); Mean Corpuscular Hemoglobin 29 PG (27-34); Mean Corpuscular Volume 83.8 FL (87-102); Mean Platelet Volume 10.5 FL (9.6-12.0); Monocytes # 0.7 10*3/uL (0.11-0.8); Monocytes % 8.5 % (1.7-12.7); Neutrophils % 68.1 % (38.7-73.9); Platelet Count 190 T/CUMM (130-400); Red Blood Count 4.08 MC/CUMM (3.8-5.5); Red Cell Distribution Width 13.7 % (9.3-17.3); White Blood Count 8.8 T/CUMM (4-12)
[2017-03-29 05:50] LABS: Alanine Aminotransferase 28 U/L (16-61); Albumin 2.8 G/DL (3.4-5.0); Alkaline Phosphatase 44 U/L (45-117); Aspartate Amino Transferase 20 U/L (0-37); Bilirubin,Indirect 0.4 MG/DL (0.0-1.0); Blood Urea Nitrogen 20 MG/DL (7-18); Calcium 8.3 MG/DL (8.5-10.1); Glucose 155 MG/DL (74-106); Magnesium 1.9 MG/DL (1.8-2.4); Osmolality,Calculated 282.5 MOS/KG (273-304); Potassium 3.7 MMOL/L (3.5-5.1); Sodium 139 MMOL/L (136-145); Total Protein 5.6 G/DL (6.4-8.3)
[2017-03-29 05:51] LABS: Troponin I Only 0.077 NG/ML (0.00-0.045)
--- NOTE | 2017-03-29 07:05 | EKG Report ---
Stationary ECG Study 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
--- NOTE | 2017-03-29 07:29 | XRay Report ---
History: Shortness of breath Date: 03/29/2017 Study: Chest x-ray PA and lateral Comparison exam: 03/28/2017 The right IJ central line is well positioned. The cardiomediastinal silhouette is unchanged in this patient status post prior median sternotomy. The pulmonary vasculature is not engorged. There is stable pleural disease on the left. There is stable platelike scar or subsegmental atelectasis on the left. There is no new or worsening infiltrate. Osseous structures are similar. Impression: No significant change from the previous study PROCEDURE INTERPRETED AT [facility] DEPARTMENT OF RADIOLOGY Final Report Signed by: Dr. Sahara Cardenas
[2017-03-29] MEDS: INSULIN REGULAR 100 UNIT/ML SUBCUT SCH ×2 (09:04→12:31)
[2017-03-29] MEDS: metFORMIN 500 MG TABLET PO SCH (09:05)
[2017-03-29] MEDS: COENZYME Q10 100 MG CAPSULE PO SCH (09:05)
[2017-03-29] MEDS: CARVEDILOL 12.5 MG TABLET PO SCH (09:05)
[2017-03-29] MEDS: ASPIRIN EC 81 MG TABLET PO SCH (09:05)
[2017-03-29] MEDS: CHOLECALCIFEROL 1,000 UNIT TABLET PO SCH (09:05)
[2017-03-29] MEDS: amLODIPine 10 MG TABLET PO SCH (09:05)
[2017-03-29] MEDS: DOCUSATE SODIUM 100 MG CAPSULE PO SCH (09:05)
[2017-03-29] MEDS: PANTOPRAZOLE 40 MG TABLET PO SCH (09:05)
[2017-03-29] MEDS: FERROUS SULFATE 325 MG TABLET PO SCH (09:05)
[2017-03-29] MEDS ORDERED: FAMOTIDINE 20 MG TABLET PO ONE (09:07)
[2017-03-29] MEDS: CHLORHEXIDINE 0.12% ORAL RINSE 60 ML BOTTLE SWISH/SPIT SCH (09:09)
[2017-03-29] MEDS: ENALAPRIL 10 MG TABLET PO SCH (09:10)
[2017-03-29] MEDS: MUPIROCIN 2% OINT 22 GM TUBE TOP SCH (09:10)
--- NOTE | 2017-03-29 09:12 | Discharge Summary ---
Hospital Course - Hospital Course Hospital Course: History of present illness: Patient is a 76-year-old man who is referred to Dr. Shah for evaluation of increasing substernal chest discomfort. 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 Circumflex coronary artery was within normal limits. Patient was referred for bypass surgery and is admitted at this time for that purpose. Past medical history review of systems social history and family history are documented in his admission note. Hospital course: Patient was taken to surgery where single-vessel bypass grafting was carried out with a saphenous vein graft to the posterior descending coronary artery branch of the right coronary artery. Anterior descending coronary artery was not graftable. Patient's postoperative course was entirely uncomplicated and he was discharged home on the sixth postoperative day with instructions to return for follow-up in 1 month. Discharge medications are listed below. Specialty Discharge - Follow Up or Referrals Follow up with: Jonas Guido MD [Physician] - 1 Month Discharge Plan - Discharge Data Disposition: Disch To Home/Self Care Condition at Discharge: Stable Discharge Diet: advance to your usual diet Activity: resume usual activities as tolerated Hygiene: no restrictions Weight Bearing at Discharge: full weight bearing Driving: not for (10 days) - Discharge Medications New Levofloxacin Tab [Levaquin Tab] 500 mg PO Q24H #10 tablet oxyCODONE/ACETAMINOPHEN 5-325 [Percocet 5-325] 1 tablet PO Q4H PRN tablet PRN Reason: Pain Mild (1-3) Continue Sertraline [Zoloft] 50 mg PO BEDTIME Simvastatin [Zocor] 20 mg PO BEDTIME Aspirin EC Tab 81 mg PO DAILY Ubidecarenone [Co Q-10] 400 mg PO DAILY Enalapril Maleate 10 mg PO BID #60 tablet metFORMIN [Glucophage] 500 mg PO TID #0 Cholecalciferol (Vitamin D3) [Vitamin D3] 1,000 unit PO DAILY Pramipexole [Mirapex] 0.25 mg PO BEDTIME Carvedilol 25 mg PO BID amLODIPine [Norvasc] 10 mg PO DAILY #30 tablet - Follow Up or Referral - Forms/Instructions Instructions: Coronary Artery Bypass Graft (DC), Heart Healthy Diet (GEN), Sternal Precautions (GEN) Exam - Constitutional Vitals: Period Temp Pulse Resp BP Sys/[place]ias Pulse Ox Last 24 Hr 96.4 F-98.4 F 64-97 16-20 121-205/64-88 93-100 Discharge Results Procedures and tests throughout hospitalization: Pending Orders 03/22/17 10:54 Fresh Frozen Plasma Routine Red Blood Cells Leuko Red Routine Single Donor Platelets Routine Type and Screen Routine Labs on day of discharge: Labs from last 24 hours 03/29/17 03/29/17 03/29/17 07:12 04:13 04:13 WBC 8.8 RBC 4.08 Hgb 11.9 L Hct 34.2 L MCV 83.8 L MCH 29 MCHC 34.8 RDW 13.7 Plt Count 190 D MPV 10.5 Neut % (Auto) 68.1 Lymph % (Auto) 16.8 L [place] % (Auto) 8.5 Eos % (Auto) 4.5 Baso % (Auto) 0.3 Neut # (Auto) 6.0 Lymph # (Auto) 1.5 [place] # (Auto) 0.7 Eos # (Auto) 0.4 Baso # (Auto) 0.0 Immature Gran % 1.8 Nucleated RBC % 0.0 Immature Gran # 0.16 Nucleated RBCs # 0.00 Sodium 139 Potassium 3.7 Chloride 103 Carbon Dioxide 27 Anion Gap 12.7 BUN 20 H Creatinine 0.90 GFR Calculation 118 BUN/Creatinine Ratio 22.00 H Glucose 155 H POC Glucose 135 H Calculated Osmolality 282.5 Calcium 8.3 L Magnesium 1.9 Total Bilirubin 0.60 Direct Bilirubin 0.20 Indirect Bilirubin 0.4 AST 20 ALT 28 Alkaline Phosphatase 44 L Total Creatine Kinase 35 L D CK-MB (CK-2) 1.1 Troponin I 0.077 H D Total Protein 5.6 L Albumin 2.8 L Globulin 2.8 Albumin/Globulin Ratio 1.0 L 03/28/17 03/28/17 03/28/17 19:41 15:59 11:55 WBC RBC Hgb Hct MCV MCH MCHC RDW Plt Count MPV Neut % (Auto) Lymph % (Auto) [place] % (Auto) Eos % (Auto) Baso % (Auto) Neut # (Auto) Lymph # (Auto) [place] # (Auto) Eos # (Auto) Baso # (Auto) Immature Gran % Nucleated RBC % Immature Gran # Nucleated RBCs # Sodium Potassium Chloride Carbon Dioxide Anion Gap BUN Creatinine GFR Calculation BUN/Creatinine Ratio Glucose POC Glucose 139 H 178 H 134 H Calculated Osmolality Calcium Magnesium Total Bilirubin Direct Bilirubin Indirect Bilirubin AST ALT Alkaline Phosphatase Total Creatine Kinase CK-MB (CK-2) Troponin I Total Protein Albumin Globulin Albumin/Globulin Ratio DS: Provider Date of admission: 03/22/17 09:36 Primary care physician: Ian aJckson Attending physician on admission: Jonas Guido MD Consults: 03/22/17 09:27 Consult to Dietitian [CONS] Routine Reason for Dietitian: Other Consult Comment: low salt, low cholesterol, diet 03/24/17 11:23 Consult to Cardiac Rehabilitation [CONS] Routine Reason for Cardiac Rehabilitation: Other Consult Comment: Post CABG/heart surgery Consult to Diabetes Center, Educator [CONS] Routine Reason for Ground Systems Engineer: Diabetes Education Initial Insulin Education Consult Comment: insulin education Consult to Dietitian [CONS] Routine Reason for Dietitian: Dietary Consult Consult Comment: Cardiac, low salt, low cholesterol diet Consult to Physical Therapy [CONS] Routine Reason for Physical Therapy: Other Consult Comment: CV Rehab Discharging clinician: Jonas Guido MD Expected date of discharge: 03/29/17
[2017-03-29] MEDS ORDERED: LEVOFLOXACIN 500 MG TABLET PO SCH (09:30)
[2017-03-29 12:04] VITALS: BP 145/70
== END 2017-03-29 13:50 | disposition home or self-care (01) | DRG 236 ==
LOC: N.TELES 09:36 → N.CVR 03-23 08:28 → N.TELES 03-24 11:05